=== PATIENT | female | born 1980 | race Caucasian/White ===

== ENCOUNTER 2018-02-27 07:22 | Emergency (ER) | payer SELFPAY ==
[2018-02-27 07:26] VITALS: BP 138/90; PULSE 74; RESP 16; TEMP 37; O2SAT 99
--- NOTE | 2018-02-27 07:31 | W.ED.GENAD ---
Discharge Plan Disposition Patient Disposition: HOME Condition: Stable Discharge Details Chief Complaint: EarProblem Clinical Impression: Acute otitis externa of left ear Primary Care Provider: NONE,NONE ED Provider: Bernard Gimenez Home Meds and New Rx's Prescriptions: New hxbcwirf-gaxilapcj-NQ 3.5-10,000-1 mg/mL-unit/mL-% drops,suspension 4 drp OT Q8H 7 Days Qty: 10 RF: 0 Continue sumatriptan succinate [Imitrex] 50 MG tablet 50 mg PO BID PRN PRN (Reason: Headache) Qty: 6 RF: 0 Discharge Instructions Instructions: Otitis Externa (ED) Discharge Data Discharge Physician: Bernard Gimenez Medical Decision Making patient comes in with left ear pain since last night, denies any swimming or use of q tips. Denies fevers or headaches. HAs pain when pulling on pinna and left external auditory meatus is inflammed and tender on exam, tm appears normal without rupture, normal exam of the right ear. Will start tx for otitis externa and advised f/u with pcp if not improving Differential Diagnosis aom, oe HPI General Mode of arrival: ambulatory. Date/Time Provider Initiated Documentation: 02/27/18 07:28. Limitations to Documentation: no limitations. Information obtained by: patient. History of Present Illness 37 year old F presents to the emergency department with the chief complaint of left ear pain, described as mild, with intensity rated at 3. Quality is described as aching, Patient reports no radiation. Patient started experiencing this day(s) (1) No relieving factors improve symptom(s), No exacerbating factors reported . Related Data Home Medications Medication Instructions Recorded Confirmed sumatriptan succinate [Imitrex] 50 mg PO BID PRN PRN #6 tab 09/05/16 02/27/18 xyqrspxt-ssnqerfws-LR 4 drp OT Q8H 7 Days #10 ml 02/27/18 Previous Rx's Medication Instructions Recorded sumatriptan succinate [Imitrex] 50 mg PO BID PRN PRN #6 tab 09/05/16 ydsvrvtj-idknylocm-RJ 4 drp OT Q8H 7 Days #10 ml 02/27/18 Allergies Allergy/AdvReac Type Severity Reaction Status Date / Time aloe vera Allergy Mild Unverified 02/27/18 07:28 General Stated Complaint: EarProblem MILADYS: 5 Review of Systems Review of Systems All systems reviewed & are unremarkable except as noted in HPI and below Constitutional Denies chills and Denies fever(s) ENT Denies change in voice Cardiovascular Denies dyspnea Respiratory Denies dyspnea Gastrointestinal Denies abdominal pain, Denies nausea and Denies vomiting Genitourinary Denies dysuria Integumentary/Breasts Denies rash Allergic/Immunologic Reports urticaria PFSH Social History Smoking/Tobacco Use Status: Former Tobacco Use Surgical History Hysterectomy, Laproscopic Exam Const General: no acute distress Orientation: alert HENMT Head: normal to inspection Ears: external ears normal, TM's normal bilaterally and other (left external audotry canal swollen and tender on exam) General nose exam: external nose normal Mouth: moist mucous membranes Eyes General: appearance normal, both eyes and all related structures Neck Neck: normal visual inspection Resp Effort & Inspection: normal respiratory effort and able to speak in complete sentences Cardio Rate: regular rate Skin General skin exam: no rashes or lesions noted Neuro General: alert and oriented x3 Extrem General: normal to inspection Psych Mental Status: mental status grossly normal Course Vital Signs Temperature 37 C 02/27/18 07:26 Pulse 74 02/27/18 07:26 Respiratory Rate 16 02/27/18 07:26 Blood Pressure 138/90 02/27/18 07:26 Pulse Oximetry 99 02/27/18 07:26 Temperature 37 C 02/27/18 07:26 Temperature Source Temporal Artery Scan 02/27/18 07:26 Pulse 74 02/27/18 07:26 Respiratory Rate 16 02/27/18 07:26 Blood Pressure 138/90 02/27/18 07:26 Pulse Oximetry 99 02/27/18 07:26 Oxygen Delivery Method Room Air 02/27/18 07:26 Oxygen Flow Rate 0 02/27/18 07:26 Pain Level 7 02/27/18 07:29
--- NOTE | 2018-02-27 07:36 | ED.GENADUL_ITS ---
Discharge Plan Disposition Patient Disposition: HOME Condition: Stable Discharge Details Chief Complaint: EarProblem Clinical Impression: Acute otitis externa of left ear Primary Care Provider: NONE,NONE ED Provider: Bernard Gimenez Home Meds and New Rx's Prescriptions: New tovivwzw-yhbkknbxi-EE 3.5-10,000-1 mg/mL-unit/mL-% drops,suspension 4 drp OT Q8H 7 Days Qty: 10 RF: 0 Continue sumatriptan succinate [Imitrex] 50 MG tablet 50 mg PO BID PRN PRN (Reason: Headache) Qty: 6 RF: 0 Discharge Instructions Instructions: Otitis Externa (ED) Discharge Data Discharge Physician: Bernard Gimenez Medical Decision Making patient comes in with left ear pain since last night, denies any swimming or use of q tips. Denies fevers or headaches. HAs pain when pulling on pinna and left external auditory meatus is inflammed and tender on exam, tm appears normal without rupture, normal exam of the right ear. Will start tx for otitis externa and advised f/u with pcp if not improving Differential Diagnosis aom, oe HPI General Mode of arrival: ambulatory . Date/Time Provider Initiated Documentation: 02/27/18 07:28 . Limitations to Documentation: no limitations . Information obtained by: patient . History of Present Illness 37 year old F presents to the emergency department with the chief complaint of left ear pain, described as mild, with intensity rated at 3. Quality is described as aching, Patient reports no radiation. Patient started experiencing this day(s) (1) No relieving factors improve symptom(s), No exacerbating factors reported . Related Data Home Medications Medication Instructions Recorded Confirmed sumatriptan succinate [Imitrex] 50 mg PO BID PRN PRN #6 tab 09/05/16 02/27/18 epoebpyt-lpnixkckd-UE 4 drp OT Q8H 7 Days #10 ml 02/27/18 Previous Rx's Medication Instructions Recorded sumatriptan succinate [Imitrex] 50 mg PO BID PRN PRN #6 tab 09/05/16 zvjfdcwp-zoiqblgem-ZG 4 drp OT Q8H 7 Days #10 ml 02/27/18 Allergies Allergy/AdvReac Type Severity Reaction Status Date / Time aloe vera Allergy Mild Unverified 02/27/18 07:28 General Stated Complaint: EarProblem MILADYS: 5 Review of Systems Review of Systems All systems reviewed & are unremarkable except as noted in HPI and below Constitutional Denies chills and Denies fever(s) ENT Denies change in voice Cardiovascular Denies dyspnea Respiratory Denies dyspnea Gastrointestinal Denies abdominal pain, Denies nausea and Denies vomiting Genitourinary Denies dysuria Integumentary/Breasts Denies rash Allergic/Immunologic Reports urticaria PFSH Social History Smoking/Tobacco Use Status: Former Tobacco Use Surgical History Hysterectomy, Laproscopic Exam Const General: no acute distress Orientation: alert HENMT Head: normal to inspection Ears: external ears normal, TM's normal bilaterally and other (left external audotry canal swollen and tender on exam) General nose exam: external nose normal Mouth: moist mucous membranes Eyes General: appearance normal, both eyes and all related structures Neck Neck: normal visual inspection Resp Effort & Inspection: normal respiratory effort and able to speak in complete sentences Cardio Rate: regular rate Skin General skin exam: no rashes or lesions noted Neuro General: alert and oriented x3 Extrem General: normal to inspection Psych Mental Status: mental status grossly normal Course Vital Signs Temperature 37 C 02/27/18 07:26 Pulse 74 02/27/18 07:26 Respiratory Rate 16 02/27/18 07:26 Blood Pressure 138/90 02/27/18 07:26 Pulse Oximetry 99 02/27/18 07:26 Temperature 37 C 02/27/18 07:26 Temperature Source Temporal Artery Scan 02/27/18 07:26 Pulse 74 02/27/18 07:26 Respiratory Rate 16 02/27/18 07:26 Blood Pressure 138/90 02/27/18 07:26 Pulse Oximetry 99 02/27/18 07:26 Oxygen Delivery Method Room Air 02/27/18 07:26 Oxygen Flow Rate 0 02/27/18 07:26 Pain Level 7 02/27/18 07:29
[2018-02-27 07:41] VITALS: BP 138/90; PULSE 74; RESP 16; TEMP 37; O2SAT 99
== END 2018-02-27 07:47 | disposition home or self-care (01) ==
PROVIDERS: Emergency Provider Emergency Medicine
DX: H60.502 Unspecified acute noninfective otitis externa, left ear (principal)
CPT/HCPCS: 99283

== ENCOUNTER 2018-10-14 08:33 | Emergency (ER) | payer OTHER, SELFPAY ==
[2018-10-14 08:42] VITALS: BP 134/98; PULSE 72; RESP 20; TEMP 36.7; O2SAT 99
--- NOTE | 2018-10-14 09:03 | W.ED.GENAD ---
Discharge Plan Disposition Patient Disposition: HOME Condition: Stable Discharge Details Chief Complaint: EarProblem Clinical Impression: Otitis externa of left ear Primary Care Provider: None,None ED Provider: Bernard Gimenez Home Meds and New Rx's Prescriptions: New lshrgzhv-olkhgvvxd-DC 3.5-10,000-1 mg/mL-unit/mL-% drops,suspension 4 drp OT Q8H 7 Days Qty: 10 RF: 0 Continued sumatriptan succinate [Imitrex] 50 MG tablet 50 mg PO BID PRN PRN (Reason: Headache) Qty: 6 RF: 0 Medical Decision Making 38 yo female comes in with left era pain for 3 days without fevers. She denies swimming or known trauma, does work in loud environment and forgot to wear ear prtection recently for brief period. Both tm's, normal on exam and external mastoids also normal. Right externaul auditory canal appears normal, left is swollen and tender on exam. Will tx as otitis externa, advised f/u with pcp and return precautions given Differential Diagnosis otitis externa, aom HPI General Mode of arrival: ambulatory. Date/Time Provider Initiated Documentation: 10/14/18 08:57. Limitations to Documentation: no limitations. Information obtained by: patient. History of Present Illness 38 year old F presents to the emergency department with the chief complaint of right ear pain, described as moderate, Quality is described as aching, Patient started experiencing this day(s) (3) and it has been constant. No relieving factors improve symptom(s), No exacerbating factors reported . Patient notes no other symptoms.. Patient did receive the following treatments prior to arrival, none Related Data Home Medications Medication Instructions Recorded Confirmed sumatriptan succinate [Imitrex] 50 mg PO BID PRN PRN #6 tab 09/05/16 10/14/18 [id number]-jaczimwgm-UB 4 drp OT Q8H 7 Days #10 ml 10/14/18 Previous Rx's Medication Instructions Recorded sumatriptan succinate [Imitrex] 50 mg PO BID PRN PRN #6 tab 09/05/16 ykzpwkww-xbyewqkqg-UP 4 drp OT Q8H 7 Days #10 ml 10/14/18 Allergies Allergy/AdvReac Type Severity Reaction Status Date / Time aloe vera Allergy Mild Unverified 10/14/18 08:44 General Stated Complaint: EarProblem MILADYS: 4 Review of Systems Review of Systems All systems reviewed & are unremarkable except as noted in HPI and below Constitutional Denies chills and Denies fever(s) ENT Denies change in voice Cardiovascular Denies chest pain and Denies dyspnea Respiratory Denies cough and Denies dyspnea Gastrointestinal Denies vomiting Integumentary/Breasts Denies rash PFSH Surgical History Hysterectomy, Laproscopic Social History Smoking/Tobacco Use Status: Former Tobacco Use Alcohol Intake: never Drug use: Never Do you feel safe at home: Yes Do you feel safe in your relationship?: Yes Exam Const General: no acute distress Orientation: alert HENMT Head: normal to inspection Ears: external ears normal General nose exam: external nose normal Mouth: moist mucous membranes Eyes General: appearance normal, both eyes and all related structures Neck Neck: normal visual inspection Resp Effort & Inspection: normal respiratory effort and able to speak in complete sentences Cardio Rate: regular rate Skin General skin exam: no rashes or lesions noted Neuro General: alert and oriented x3 Extrem General: normal to inspection Psych Mental Status: mental status grossly normal Course Vital Signs Temperature 36.7 C 10/14/18 08:42 Pulse 72 10/14/18 08:42 Respiratory Rate 20 10/14/18 08:42 Blood Pressure 134/98 H 10/14/18 08:42 Pulse Oximetry 99 10/14/18 08:42 Temperature 36.7 C 10/14/18 08:42 Temperature Source Temporal Artery Scan 10/14/18 08:42 Pulse 72 10/14/18 08:42 Respiratory Rate 20 10/14/18 08:42 Respiratory Effort Non-Labored 10/14/18 08:42 Blood Pressure 134/98 H 10/14/18 08:42 Pulse Oximetry 99 10/14/18 08:42 Oxygen Delivery Method Room Air 10/14/18 08:42 Oxygen Flow Rate 0 10/14/18 08:42 Pain Level 6 10/14/18 08:44
--- NOTE | 2018-10-14 09:08 | ED.GENADUL_ITS ---
Discharge Plan Disposition Patient Disposition: HOME Condition: Stable Discharge Details Chief Complaint: EarProblem Clinical Impression: Otitis externa of left ear Primary Care Provider: None,None ED Provider: Bernard Gimenez Home Meds and New Rx's Prescriptions: New omowgdbw-dazmfjiei-QF 3.5-10,000-1 mg/mL-unit/mL-% drops,suspension 4 drp OT Q8H 7 Days Qty: 10 RF: 0 Continued sumatriptan succinate [Imitrex] 50 MG tablet 50 mg PO BID PRN PRN (Reason: Headache) Qty: 6 RF: 0 Medical Decision Making 38 yo female comes in with left era pain for 3 days without fevers. She denies swimming or known trauma, does work in loud environment and forgot to wear ear prtection recently for brief period. Both tm's, normal on exam and external mastoids also normal. Right externaul auditory canal appears normal, left is swollen and tender on exam. Will tx as otitis externa, advised f/u with pcp and return precautions given Differential Diagnosis otitis externa, aom HPI General Mode of arrival: ambulatory . Date/Time Provider Initiated Documentation: 10/14/18 08:57 . Limitations to Documentation: no limitations . Information obtained by: patient . History of Present Illness 38 year old F presents to the emergency department with the chief complaint of right ear pain, described as moderate, Quality is described as aching, Patient started experiencing this day(s) (3) and it has been constant. No relieving factors improve symptom(s), No exacerbating factors reported . Patient notes no other symptoms.. Patient did receive the following treatments prior to arrival, none Related Data Home Medications Medication Instructions Recorded Confirmed sumatriptan succinate [Imitrex] 50 mg PO BID PRN PRN #6 tab 09/05/16 10/14/18 ytziqkgq-aqoydqjqe-EK 4 drp OT Q8H 7 Days #10 ml 10/14/18 Previous Rx's Medication Instructions Recorded sumatriptan succinate [Imitrex] 50 mg PO BID PRN PRN #6 tab 09/05/16 jljygnae-qdjwimkwa-LC 4 drp OT Q8H 7 Days #10 ml 10/14/18 Allergies Allergy/AdvReac Type Severity Reaction Status Date / Time aloe vera Allergy Mild Unverified 10/14/18 08:44 General Stated Complaint: EarProblem MILADYS: 4 Review of Systems Review of Systems All systems reviewed & are unremarkable except as noted in HPI and below Constitutional Denies chills and Denies fever(s) ENT Denies change in voice Cardiovascular Denies chest pain and Denies dyspnea Respiratory Denies cough and Denies dyspnea Gastrointestinal Denies vomiting Integumentary/Breasts Denies rash PFSH Surgical History Hysterectomy, Laproscopic Social History Smoking/Tobacco Use Status: Former Tobacco Use Alcohol Intake: never Drug use: Never Do you feel safe at home: Yes Do you feel safe in your relationship?: Yes Exam Const General: no acute distress Orientation: alert HENMT Head: normal to inspection Ears: external ears normal General nose exam: external nose normal Mouth: moist mucous membranes Eyes General: appearance normal, both eyes and all related structures Neck Neck: normal visual inspection Resp Effort & Inspection: normal respiratory effort and able to speak in complete sentences Cardio Rate: regular rate Skin General skin exam: no rashes or lesions noted Neuro General: alert and oriented x3 Extrem General: normal to inspection Psych Mental Status: mental status grossly normal Course Vital Signs Temperature 36.7 C 10/14/18 08:42 Pulse 72 10/14/18 08:42 Respiratory Rate 20 10/14/18 08:42 Blood Pressure 134/98 H 10/14/18 08:42 Pulse Oximetry 99 10/14/18 08:42 Temperature 36.7 C 10/14/18 08:42 Temperature Source Temporal Artery Scan 10/14/18 08:42 Pulse 72 10/14/18 08:42 Respiratory Rate 20 10/14/18 08:42 Respiratory Effort Non-Labored 10/14/18 08:42 Blood Pressure 134/98 H 10/14/18 08:42 Pulse Oximetry 99 10/14/18 08:42 Oxygen Delivery Method Room Air 10/14/18 08:42 Oxygen Flow Rate 0 10/14/18 08:42 Pain Level 6 10/14/18 08:44
== END 2018-10-14 09:18 | disposition home or self-care (01) ==
PROVIDERS: Emergency Provider Emergency Medicine
DX: H60.92 Unspecified otitis externa, left ear (principal); Z87.891 Personal history of nicotine dependence
CPT/HCPCS: 99283

== ENCOUNTER 2019-01-22 09:27 | Emergency (ER) | payer SELFPAY ==
[2019-01-22 09:30] VITALS: BP 121/81; PULSE 89; RESP 18; TEMP 36.4; O2SAT 100
--- NOTE | 2019-01-22 09:35 | ED.GENADUL_ITS ---
Discharge Plan Disposition Patient Disposition: HOME Condition: Good Discharge Details Chief Complaint: Orthopedic Clinical Impression: Left shoulder strain, Muscle spasm Primary Care Provider: None,None ED Provider: Hetal Echols Home Meds and New Rx's Prescriptions: New diazepam [Valium] 5 mg tablet 5 mg PO TID PRN (Reason: muscle spasm) Qty: 7 RF: 0 lidocaine [Lidoderm] 5 % adhesive patch,medicated 1 patch TP DAILY PRN (Reason: pain) Qty: 15 RF: 0 Continued sumatriptan succinate [Imitrex] 50 MG tablet 50 mg PO BID PRN PRN (Reason: Headache) Qty: 6 RF: 0 naproxen sodium [Aleve] 220 mg Tablet 440 mg PO Q12H PRNRF: 0 Discharge Instructions Instructions: Muscle Spasm (ED) Additional Instructions: Encourage hydration. May use Tylenol and/or ibuprofen as needed for discomfort. You may use the Lidoderm patches as prescribed to help with pain. Augment this with the Valium if you continue to have muscle spasm along the trapezius. Do not drive while taking the Valium. Take this was prescribed. I am unable to examine the deeper structures such as her rotator cuff at this time secondary to pain. Pain persist with the Please follow-up with your primary care for reevaluation. If you develop new or worsening symptoms please Stand Alone Forms: Work Release Discharge Data Discharge Date/Time-TO BE ENTERED AT DEPARTURE: 01/22/19 10:55 Medical Decision Making Patient is a 38-year-old ambidextrous female presents today with chief complaint left shoulder pain. She reports that yesterday, while at work, she was lifting 100 pound mold with a coworker. She reports the coworker lost her claims support specialist and she quickly adjusted to try and catch the possible equipment. No sudden onset of left shoulder pain and since then has had progressive worsening left shoulder pain. She indicates the superior and lateral aspect of shoulder is area of discomfort. Reports that she did feel pop. Denies any altered sensation. No other injury the time of the accident. Patient is status post hysterectomy. On exam, patient is resting comfortably. She has pain to palpation over the lateral aspect, particularly at the subacromial space. Also endorses discomfort along the trapezius with palpation. She does feel tight and has notable spasm in this area. She take anti-inflammatory prior to arrival. Range of motion is limited, she is able to forward elevate to 190 degrees. External rotation is lacking approximately 15 degrees contralateral side. Internal rotation is full. No palpable deformity, no evidence of ecchymosis in the skin. Plan for imaging, augmentation of the NSAIDs with Tylenol, Lidoderm patch and muscle relaxer. Patient is feeling much improved. X-ray reviewed by radiologist as well as myself and noted to be without any acute abnormality. Discussed these findings with the patient. Advised strain. We did discuss that given the discomfort she is experiencing at this time, I am unable to fully evaluate the rotator cuff. However, advised to need time to allow her acute injury to heal. Encourage gentle range of motion, she is given his passive exercises to keep her from developing adhesive capsulitis. Advise follow-up with primary care in 1 to 2 weeks for reevaluation. She is given strict return precautions. She will continue with Tylenol and ibuprofen as needed for discomfort. She was offered sling which she declined. All her questions and concerns were addressed and she is in agreement this plan HPI General Mode of arrival: ambulatory . Date/Time Provider Initiated Documentation: 01/22/19 09:34 . Limitations to Documentation: no limitations . Information obtained by: patient and RN notes reviewed . History of Present Illness 38 year old F presents to the emergency department with the chief complaint of left shoulder pain, described as moderate, with intensity rated at 7. Quality is described as burning and aching, and is localized to the left and upper extremity. Patient reports no radiation. Patient started experiencing this day(s) (1) and it has been constant. Immobilization improves symptom(s), Movement worsens symptoms . Patient notes no other symptoms.. Patient did receive the following treatments prior to arrival, NSAID Related Data Home Medications Medication Instructions Recorded Confirmed sumatriptan succinate [Imitrex] 50 mg PO BID PRN PRN #6 tab 09/05/16 01/22/19 diazepam [Valium] 5 mg PO TID PRN #7 tab 01/22/19 lidocaine [Lidoderm] 1 patch TP DAILY PRN #15 each 01/22/19 naproxen sodium [Aleve] 440 mg PO Q12H PRN 01/22/19 01/22/19 Previous Rx's Medication Instructions Recorded sumatriptan succinate [Imitrex] 50 mg PO BID PRN PRN #6 tab 04/13/17 diazepam [Valium] 5 mg PO TID PRN #7 tab 01/22/19 lidocaine [Lidoderm] 1 patch TP DAILY PRN #15 each 01/22/19 Allergies Allergy/AdvReac Type Severity Reaction Status Date / Time aloe vera Allergy Mild Unverified 01/22/19 09:40 General Stated Complaint: Orthopedic MILADYS: 4 Review of Systems Constitutional Reports as per HPI, Denies chills, Denies fever(s), Denies headache(s) and Denies weakness ENT Denies headache(s) Cardiovascular Reports as per HPI Respiratory Reports as per HPI and Denies cough Musculoskeletal Reports as per HPI and Denies tingling Integumentary/Breasts Reports as per HPI, Denies rash and Denies wounds Neurologic Reports as per HPI, Denies headache(s), Denies tingling, Denies paresthesias and Denies weakness PFSH Surgical History Hysterectomy, Laproscopic Social History Smoking/Tobacco Use Status: Former Tobacco Use Alcohol Intake: never Drug use: Never Do you feel safe at home: Yes Do you feel safe in your relationship?: Yes Exam Const General: cooperative, healthy appearing, comfortable, no acute distress, well developed and well groomed Nutritional Appearance: average body habitus and well nourished Orientation: alert and awake Resp Effort & Inspection: normal respiratory effort, able to speak in complete sentences and no respiratory distress Cardio Rate: regular rate Rhythm: regular rhythm Skin General skin exam: no rashes or lesions noted Lesions: no lesions Rashes: no rashes Trauma: no lacerations or abrasions Neuro General: alert and awake Cognition: normal cognition Speech: speech normal Gait: normal gait Motor: muscle tone normal throughout Sensory Exam: no sensory deficits noted Extrem Left upper extremity: normal to inspection, normal capillary refill, no joint enlargement, shoulder/upper arm Details: inspection abnormal, tenderness (superior lateral) and axillary nerve sensory function normal; no swelling, ROM limited, no abrasions, no lacerations, no crepitus, no deformity and no unsual warmth, elbow/forearm Details: normal to inspection, normal ROM and distal pulses intact; no tenderness, no swelling and no unusual warmth and wrist Details: normal to inspection, normal ROM and normal vascular exam; no te nderness and no swelling; ROM limited (limited FE to 90) Psych Appearance: grossly normal and well kempt Mental Status: mental status grossly normal Speech and Movement: speech and movement normal Course Vital Signs Temperature 36.4 C L 01/22/19 09:30 Pulse 89 01/22/19 09:30 Respiratory Rate 18 01/22/19 09:30 Blood Pressure 121/81 01/22/19 09:30 Pulse Oximetry 100 01/22/19 09:30 Temperature 36.4 C L 01/22/19 09:30 Temperature Source Temporal Artery Scan 01/22/19 09:30 Pulse 89 01/22/19 09:30 Respiratory Rate 18 01/22/19 09:30 Respiratory Effort Short of Breath 01/22/19 09:34 Blood Pressure 121/81 01/22/19 09:30 Blood Pressure Position Sitting 01/22/19 09:30 Pulse Oximetry 100 01/22/19 09:30 Oxygen Delivery Method Room Air 01/22/19 09:30 Oxygen Flow Rate 0 01/22/19 09:30 Pain Level 7 01/22/19 09:30
--- NOTE | 2019-01-22 09:53 | DI.RAD_ITS ---
SYMPTOM/DIAGNOSIS: PAIN LATERALLY, TRAUMA FROM LIFTING YESTERDAY LEFT SHOULDER: No fracture or dislocation is seen. IMPRESSION: Negative left shoulder.
[2019-01-22] MEDS: diazePAM 5 MG TAB PO (10:14)
[2019-01-22] MEDS: Acetaminophen 500 MG TAB 1000 MG PO (10:14)
[2019-01-22] MEDS: Lidocaine 5% Patch 1 PATCH TP (10:35)
== END 2019-01-22 10:55 | disposition home or self-care (01) ==
PROVIDERS: Emergency Provider Physician Assistant
DX: S46.912A Strain of unspecified muscle, fascia and tendon at shoulder and upper arm level, left arm, initial encounter (principal); M62.838 Other muscle spasm; X50.0XXA Overexertion from strenuous movement or load, initial encounter; Y99.0 Civilian activity done for income or pay
CPT/HCPCS: 99283; 73030

== ENCOUNTER 2019-03-08 10:20 | Emergency (ER) | payer OTHER, SELFPAY ==
[2019-03-08 10:22] VITALS: BP 115/79; PULSE 80; RESP 18; TEMP 36.6; O2SAT 99
--- NOTE | 2019-03-08 10:36 | ED.GENADUL_ITS ---
Discharge Plan Disposition Patient Disposition: HOME Discharge Details Chief Complaint: EarProblem Clinical Impression: Otitis externa of left ear Primary Care Provider: Elizabeth Hauser ED Provider: Julio César Agudelo Home Meds and New Rx's Prescriptions: New Ciprodex 0.3-0.1 % drops,suspension 4 drp OT BID 7 Days Qty: 7.5 RF: 0 No Action sumatriptan succinate [Imitrex] 50 MG tablet 50 mg PO BID PRN PRN (Reason: Headache) Qty: 6 RF: 0 naproxen sodium [Aleve] 220 mg Tablet 440 mg PO Q12H PRNRF: 0 Discharge Instructions Instructions: Otitis Externa (ED) Additional Instructions: Your exam is concerning for an infection involving the ear canal. Apply drops as prescribed. He can also try several drops of all of oil at home for discomfort. Take Tylenol Motrin as tolerated. Return should symptoms worsen. Referrals: Elizabeth Hauser, [employer] [Primary Care Provider] - 1 week Medical Decision Making This is a nontoxic-appearing 38-year-old female presenting to the emergency department with symptoms significant for left otitis externa. Canal erythema and edema noted. No significant discharge at this time. TMs clear bilaterally. Will provide Ciprodex drops for infection. Return precautions provided HPI General Date/Time Provider Initiated Documentation: 03/08/19 10:21 . HPI Narrative: Patient is a 38-year-old female who presents to the emergency department with left ear pain. Patient states symptoms been going on for the last 24 hours. She denies any trauma. No fevers. No sore throat. She states that she did take a shower prior to the onset of her symptoms and did not dry her hair. Related Data Home Medications Medication Instructions Recorded Confirmed sumatriptan succinate [Imitrex] 50 mg PO BID PRN PRN #6 tab 09/05/16 03/08/19 naproxen sodium [Aleve] 440 mg PO Q12H PRN 01/22/19 03/08/19 ciprofloxacin-dexamethasone 4 drp OT BID 7 Days #7.5 ml 03/08/19 [Ciprodex] Previous Rx's Medication Instructions Recorded sumatriptan succinate [Imitrex] 50 mg PO BID PRN PRN #6 tab 09/05/16 ciprofloxacin-dexamethasone 4 drp OT BID 7 Days #7.5 ml 03/08/19 [Ciprodex] Allergies Allergy/AdvReac Type Severity Reaction Status Date / Time aloe vera Allergy Mild Unverified 03/08/19 10:27 General Stated Complaint: EarProblem MILADYS: 4 Review of Systems Constitutional Constitutional: Denies chills, Denies fever(s), Denies headache(s) and Denies lethargy Eyes Eyes: Denies eye discharge ENT Ears, Nose, Mouth, and Throat: Denies dental pain, Denies dysphagia, Reports otalgia, Denies facial pain, Denies headache(s), Denies hearing loss, Denies hoarseness, Denies mouth lesions, Denies nasal congestion, Denies nasal discharge, Denies neck pain and Denies sore throat Cardiovascular Cardiovascular: Denies chest pain Gastrointestinal Gastrointestinal: Denies dysphagia Musculoskeletal Musculoskeletal: Denies neck pain Integumentary/Breasts Skin/Breast: Denies rash Neurologic Neurologic: Denies headache(s) PFSH Surgical History Hysterectomy, Laproscopic Social History Smoking/Tobacco Use Status: Former Tobacco Use Alcohol Intake: never Drug use: Never Do you feel safe at home: Yes Do you feel safe in your relationship?: Yes Exam Const General: cooperative, healthy appearing, comfortable, no acute distress and well developed HENWY Head: normal to inspection Ears: hearing grossly normal bilaterally, TM's normal bilaterally and EAC abnormal erythema on the left, edema on the left and EAC tenderness on the left Face and sinus: normal facial exam Mouth: oral mucosae normal Throat: posterior oropharynx normal Eyes General: appearance normal, both eyes and all related structures Neck Neck: normal visual inspection Lymphatic: lymphadenopathy (Anterior cervical) Chest Chest: normal inspection of the chest Resp Effort & Inspection: normal respiratory effort and able to speak in complete sentences Auscultation: clear to auscultation bilaterally Skin General skin exam: no rashes or lesions noted Course Vital Signs Vital signs: Vital Signs Temperature 36.6 C 03/08/19 10:22 Pulse 80 03/08/19 10:22 Respiratory Rate 18 03/08/19 10:22 Blood Pressure 115/79 03/08/19 10:22 Pulse Oximetry 99 03/08/19 10:22 Temperature 36.6 C 03/08/19 10:22 Temperature Source Temporal Artery Scan 03/08/19 10:22 Pulse 80 03/08/19 10:22 Respiratory Rate 18 03/08/19 10:22 Respiratory Effort Non-Labored 03/08/19 10:26 Blood Pressure 115/79 03/08/19 10:22 Blood Pressure Position Sitting 03/08/19 10:22 Pulse Oximetry 99 03/08/19 10:22 Oxygen Delivery Method Room Air 03/08/19 10:22 Oxygen Flow Rate 0 03/08/19 10:22 Pain Level 7 03/08/19 10:26
== END 2019-03-08 10:56 | disposition home or self-care (01) ==
LOC: ER 10:54
PROVIDERS: Emergency Provider Physician Assistant; PCP Nurse Practitioner
DX: H66.92 Otitis media, unspecified, left ear (principal)
CPT/HCPCS: 99283

== ENCOUNTER 2019-03-26 07:00 | Outpatient (CLI) | payer OTHER, SELFPAY ==
[2019-03-26 11:03] LABS: Calculated LDL 137 mg/dL; Cholesterol 204 mg/dL (50-200); HDL Cholesterol 51 mg/dL (40-60); Triglyceride 80 mg/dL (30-150)
[2019-03-26 11:04] LABS: Hemoglobin A1C 5.7 % (4.5-6.2)
== END 2019-03-26 07:20 ==
PROVIDERS: PCP Nurse Practitioner; Visit Provider Nurse Practitioner
DX: Z13.6 Encounter for screening for cardiovascular disorders (principal); Z13.1 Encounter for screening for diabetes mellitus
CPT/HCPCS: 36415; 80061; 83036

== ENCOUNTER 2019-04-28 01:00 | Outpatient (CLI) | payer OTHER, SELFPAY ==
--- NOTE | 2019-04-28 16:05 | DI.MAMMO_ITS ---
EXAM: MG MAMMO SCREENING CLINICAL HISTORY: screening, Z12.39. TECHNIQUE: Bilateral full field digital CC and MLO mammographic images were obtained with 3D tomosyn thesis and utilizing computer aided detection (CAD). COMPARISON: baseline FINDINGS: Masses/Architectural Distortion: None seen. Microcalcifications: No suspicious pleomorphic-type are seen. Skin Thickening/Nipple Retraction: None. IMPRESSION: 1. No significant interval change with no specific features of malignancy noted. 2. Unless there is more urgent need, screening mammography is recommended, as per [employer] guidelines. BI-RADS Cat 1 - Negative Breast Density - Category C - Heterogeneously dense A negative radiographic report should not delay biopsy if a dominant or clinically suspicious mass is present. Up to ten percent of cancers are not identified on mammography. A negative report may reinforce clinical impression. Adenosis and dense breasts may obscure an underlying neoplasm. False positive reports average 6 to 10%. Patient will receive a letter notifying them of these results.
== END 2019-04-28 01:20 ==
PROVIDERS: PCP Nurse Practitioner; Visit Provider Nurse Practitioner
DX: Z12.31 Encounter for screening mammogram for malignant neoplasm of breast (principal)
CPT/HCPCS: 77063; 77067

== ENCOUNTER 2019-06-02 03:45 | Emergency (ER) | payer OTHER, SELFPAY ==
[2019-06-02 03:49] VITALS: BP 133/81; PULSE 90; RESP 16; TEMP 36.6; O2SAT 99
--- NOTE | 2019-06-02 03:53 | W.ED.GENAD ---
Discharge Plan Disposition Patient Disposition: HOME Condition: Good Discharge Details Chief Complaint: Headache Clinical Impression: Migraine Primary Care Provider: Elizabeth Hauser ED Provider: Melvin Henley Home Meds and New Rx's Prescriptions: No Action sumatriptan succinate [Imitrex] 50 MG tablet 50 mg PO BID PRN PRN (Reason: Headache) Qty: 6 RF: 0 Discharge Instructions Instructions: Migraine Headache (ED) Additional Instructions: At this time your symptoms are consistent with migraine headache. Please contact your primary care provider in the morning to finalize your refill on your medication. Please continue to drink plenty fluids at home, avoid preserved movements. If you notice any worsening of your symptoms, or any new symptoms such as vomiting, diarrhea, fever, chills, shortness of breath, chest pain, numbness, weakness, or fainting , please return immediately to the emergency department for reevaluation. Please follow up with your primary care provider as soon as possible for reassessment and reevaluation. As always, it was a pleasure participating in your medical care today. Referrals: Elizabeth Hauser, [employer] [Primary Care Provider] - Medical Decision Making Is a pleasant 39-year-old female with a past medical history of chronic migraines who does have Imitrex at home who presents today for evaluation of headache. She recently ran out of Imitrex and is scheduled to get a refill by her PCP. Patient states that 3 to 4 hours ago she had an onset of her headache, it was gradual in nature. Not thunderclap. No associated neck pain fevers or chills. No clinical evidence of meningitis. Patient states that her symptoms are identical to previous migraines. She would like to hold off on any additional imaging. Neurologic exam is unremarkable. Signs and symptoms are clinically consistent with chronic migraine and inconsistent with meningitis, or acute life-threatening intracranial process. Will give migraine cocktail, rehydrate and reassess. 4:40 AM The patient has near complete resolution of her symptoms and is asking to go home. She feels much better. Repeat neurologic exam is normal and unremarkable. No focal neurologic deficits. Signs and symptoms clinically consistent with chronic migraine. Discussed red flags for which to return. I have extensively reviewed the treatment plan and discharge instructions with the patient. I have addressed all patient concerns at this time. The patient was made aware of what symptoms to monitor for that would warrant a return to the emergency department. Discussed the plan with the patient, they demonstrate verbal understanding and agreement with our assessment and plan at this time. HPI General Date/Time Provider Initiated Documentation: 06/02/19 03:47. HPI Narrative: This is a 39-year-old female with a past medical history of migraine headaches who presents today for evaluation of migraine headache. Patient states that she recently ran out of her Imitrex, and is supposed to get it refilled by her primary care provider. Her headache started at midnight which is about 4 hours ago. It is in the left cheondoism. She has associated aversion to light and loud noise. She denies any significant neck pain, no fever, no chills or trauma. She has had a CT scan in the past in conjunction with her headaches which was unremarkable. She states that this is identical to previous migraines. She denies any vomiting, diarrhea, numbness tingling or weakness. The patient denies any headache red flags of worst headache of life, thunderclap headache, neck pain, fever, chills, concerning family history of polycystic kidney disease, Marfan syndrome, Phil-Danlos syndrome, abdominal aortic aneurysm, aortic dissection, or intracranial aneurysm. Related Data Home Medications Medication Instructions Recorded Confirmed sumatriptan succinate [Imitrex] 50 mg PO BID PRN PRN #6 tab 09/05/16 06/02/19 Previous Rx's Medication Instructions Recorded sumatriptan succinate [Imitrex] 50 mg PO BID PRN PRN #6 tab 09/05/16 Allergies Allergy/AdvReac Type Severity Reaction Status Date / Time aloe vera Allergy Mild Unverified 06/02/19 03:54 General MILADYS: 4 Review of Systems All systems reviewed & are unremarkable except as noted in HPI and below PFSH Social History Smoking/Tobacco Use Status: Former Tobacco Use Tobacco: How many years used: 10 Alcohol Intake: current Alcohol Intake frequency: holidays/special occasions only Drug use: Never Do you feel safe at home: Yes Do you feel safe in your relationship?: Yes Exam Narrative Exam Narrative: 1.Const: Well-nourished, Well-developed, appearing stated age 2.Eyes: PERRL, no conjunctival injection, and symmetrical lids. 3.ENT: Atraumatic external nose and ears. Moist MM. Neck: Symmetric, trachea midline, No thyromegaly. Patient demonstrates good movement of cervical neck. There is no nuchal rigidity, no nuchal tenderness. Patient is able to flex the neck without any difficulty or significant pain. Negative Kernig's and Brudzinski sign. 4.CVS: +S1/S2, No murmurs or gallops. Peripheral pulses 2+ and equal in all extremities. Brisk capillary refill in all extremities. 5.RESP: Unlabored respiratory effort. Clear to auscultation bilaterally. No wheezes rales or rhonchi 6.GI: Soft, Nontender/Nondistended, No hepatosplenomegaly. No guarding or rebound. 7.MSK: Normocephalic/Atraumatic, Extremities w/o deformity or ttp No cyanosis or clubbing, Normal movement of all extremities 8.Skin: Warm, Dry. No rashes or lesions. 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 Sensation grossly intact, no focal neurologic deficits. All 6 cardinal planes of vision are fully intact. No evidence of rotatory or vertical nystagmus. The patient demonstrated a normal wytetr-vlbx-oiyimk, good dexterity. There was no evidence of dysdiadochokinesia. Patient was able to ambulate without difficulty. There was no wide-based gait. Romberg testing was normal. Qkjv-eq-zzfn testing was normal. Sensation was intact bilaterally as well as muscle strength bilaterally for all extremities. Patient was able to verbalize butter cup with no slurring, or miss pronunciation. Cerebellar function testing is normal. The patient demonstrates a normal hints exam with no findings concerning for a central event. No vertical nystagmus. The head impulse test is negative for any significant central abnormality. Normal test of skew. No suggestion of a central cerebellar event. 10.Psych: (AAO) x3. Appropriate mood and affect
[2019-06-02] MEDS: Normal Saline 1,000 ML 1000 ML IV (03:59)
[2019-06-02] MEDS: Acetaminophen 500 MG TAB 1000 MG PO (04:00)
[2019-06-02] MEDS: diphenhydrAMINE 50 MG/ML VIAL 25 MG IVP (04:01)
[2019-06-02] MEDS: Ketorolac 30 MG/ML VIAL IVP (04:03)
[2019-06-02] MEDS: methylPREDNISolone SUCC 125 MG VIAL IVP (04:04)
[2019-06-02] MEDS: Prochlorperazine 10 MG/2 ML VIAL IVP (04:06)
[2019-06-02 04:43] VITALS: BP 119/82; PULSE 69; RESP 18; O2SAT 100
== END 2019-06-02 04:45 | disposition home or self-care (01) ==
PROVIDERS: Emergency Provider Student in an Organized Health Care Education/Training Program; PCP Nurse Practitioner
DX: G43.909 Migraine, unspecified, not intractable, without status migrainosus (principal)
CPT/HCPCS: 96361; 96374; 96375; 99284; 99283; J0780; J1200; J1885; J2930

== ENCOUNTER 2019-06-21 01:45 | Outpatient (CLI) | payer OTHER, SELFPAY ==
[2019-06-21] MEDS: Omnipaque 350 MG/ML 100 ML BTL IJ (10:10)
--- NOTE | 2019-06-21 10:12 | DI.CT_ITS ---
EXAM: CT NECK W CLINICAL HISTORY: ASYMMETRIC TONSILS, NECK PAIN, OROPHARYNGEAL DYSPHAGIA, TONSILLAR CALCULUS, J35.8, M54.2, R13.12 TECHNIQUE: Post IV contrast. COMPARISON: No exams were available for comparison FINDINGS: Scarring and emphysematous changes are seen at the lung apices. The parotid, submandibular and thyr oid glands are unremarkable. The adenoids are not enlarged. There are a few small calcifications wi thin the left tonsil. There is no evidence of focal tonsillar mass or abscess. There is no evidence of inflammation. The visualized portions of the orbits and sinuses are unremarkable. There are no a bnormal enhancing lesions. The epiglottis is unremarkable. IMPRESSION: A few calcifications are seen within the left tonsil which is otherwise unremarkable.
== END 2019-06-21 02:05 ==
PROVIDERS: PCP Nurse Practitioner; Visit Provider Otolaryngology Otolaryngology/Facial Plastic Surgery
DX: M54.2 Cervicalgia (principal); R13.12 Dysphagia, oropharyngeal phase; J35.8 Other chronic diseases of tonsils and adenoids
CPT/HCPCS: 70491; J3490

== ENCOUNTER 2019-07-05 06:56 | Day surgery (SDC) | payer OTHER, SELFPAY ==
[2019-07-05] VITALS (7 sets, daily range): BP systolic 98–117; BP diastolic 70–84; PULSE 51–63; RESP 10–17; TEMP 36.3–37.1; O2SAT 99–100
[2019-07-05] MEDS: Lactated Ringers 1,000 ML 80 ML IV (07:46)
--- NOTE | 2019-07-05 08:00 | W.PM.DSUDISC ---
Discharge Plan Disposition Patient Disposition: HOME Condition: Good Discharge Details Reason For Visit: OR Attending Provider: Simba Villa Primary Care Provider: Elizabeth Hauser Home Meds and New Rx's Prescriptions: No Action idgfhusicoxo-Oe-dbzz-minerals 18-0.4 mg tablet 1 tab PO DAILY RF: 0 sumatriptan succinate [Imitrex] 50 mg tablet 50 mg PO BID PRN Qty: 6 RF: 0 Discharge Instructions Additional Instructions: see sheet Remove Dressings/Wound Care:: 24 hours Shower/Bathe:: 24 hours Diet:: As Tolerated DS: Diagnosis Discharge Diagnosis (1) Chronic tonsillitis: Status: Acute (2) Tonsillar calculus: Status: Acute (3) Oropharyngeal dysphagia: Status: Acute (4) Asymmetric tonsils: Status: Acute (5) Neck pain: Status: Acute
--- NOTE | 2019-07-05 08:56 | TONSIL_PTH ---
PATIENT: Elle Alvarez LOC: YOU U#:[id number] AGE/SX: 39/F ROOM: RE07/05/[address]: Simba Villa DO : 1980 BED: DIS: 07/05/2019 SPEC #: [id number] RECD: 07/05/19 12:38 STATUS: NETO REQ #: [id number] TEVIN: 07/05/19 08:[address]: Simba Villa DEPT: Surgical Specimen RECD BY: Armida Fernandez ENTERED: 07/05/19 12:40 SP TYPE: TONSIL OTHR DR: Elizabeth Hauser, PhD CORRUGATOR OPERATOR Tissues: 1 - TONSIL AGE 17 & OVER 2 - TONSIL AGE 17 & OVER Procedures: GROSS AND MICRO LEVEL 3 Comments: [id number]
[2019-07-05] MEDS: Oxymetazolone 0.05% SPRAY 15 ML BTL (09:20)
[2019-07-05] MEDS: HYDROmorphone 2 MG/ML VIAL IVP ×2 (09:24→09:41)
[2019-07-05] MEDS: Normal Saline Flush 10 ML SYR IV (09:24)
--- NOTE | 2019-07-05 10:30 | ROE_ITS ---
DATE OF SURGERY: July 05, 2019 PREOPERATIVE DIAGNOSIS: 1. Chronic tonsillitis. 2. Chronic tonsillar calculi. 3. Asymmetry to the tonsils. POSTOPERATIVE DIAGNOSIS: Same. PROCEDURE: Tonsillectomy. SURGEON: Simba Villa D.O. ANESTHESIA: General. ESTIMATED BLOOD LOSS: Scant. COMPLICATIONS: None. CONDITION: The patient tolerated the procedure well. FINDINGS: 2+ left tonsil, 1+ right tonsil. INDICATIONS FOR PROCEDURE: This is a 39-year-old female who presents with a long history of tonsilli tis and chronic tonsil calculi bilaterally with asymmetry of the tonsils. The decision was made fort h to proceed with surgery. Risks and complications were discussed in detail. Consent was placed in the Chart. PROCEDURE IN DETAIL: Patient was brought back to the operating suite in stable condition, placed sup ine on the operating table, and intubated in normal fashion. The table was rotated 90 degrees. There was no evidence of submucosal clefting or bifid uvula. The McIvor retractor was placed in the oral ca vity and suspended from the Galvan stand. The right tonsil was grasped in the superior pole and mediali zed. Pinpoint cautery was used to develop the peritonsillar fascial plane, dissection was carried out to the upper and mid portions of the tonsil with final amputation conducted with suction cautery. Th ere was no bleeding within the right tonsillar fossa. Next, the left tonsil was grasped in the superi or pole with a curved Allis forceps and medialized. Pinpoint cautery was used to develop the peritons illar fascial plane. Dissection was carried out in the plane in the superior and mid portion of the t onsils. Final amputation was conducted with suction cautery without bleeding within left fossa, Valsa lva was performed without bleeding. TMJ's were checked and were free of dislocation. Gastric contents suctioned. The patient tolerated the procedure well and went to PACU in stable condition.
== END 2019-07-05 11:30 | disposition home or self-care (01) ==
PROVIDERS: PCP Nurse Practitioner; Visit Provider Otolaryngology Otolaryngology/Facial Plastic Surgery
PROC: (CPT 42826; principal; 2019-07-05 08:15)
DX: J35.01 Chronic tonsillitis (principal); J35.8 Other chronic diseases of tonsils and adenoids; R13.12 Dysphagia, oropharyngeal phase
CPT/HCPCS: 42826; 88304; J1100; J2405; J2704

== ENCOUNTER 2019-11-28 13:10 | Emergency (ER) | payer SELFPAY ==
[2019-11-28 13:14] VITALS: BP 147/111; PULSE 79; RESP 18; TEMP 37.1; O2SAT 99
--- NOTE | 2019-11-28 13:15 | DI.RAD_ITS ---
EXAM: XR SHOULDER LT COMPLETE 2+V CLINICAL HISTORY: fall. TECHNIQUE: 2D digital imaging was performed. COMPARISON: CR XR shoulder LT complete 2+V from 01/22/2019 FINDINGS: BONES: No acute fracture is present. No bony destructive lesion is seen. JOINTS: No dislocation present. SOFT TISSUE: Normal. IMPRESSION: Unremarkable radiographs of the left shoulder. DATA REPOSITORY: RADIATION DOSE DELIVERED:
--- NOTE | 2019-11-28 13:17 | ED.GENADUL_ITS ---
Discharge Plan Disposition Patient Disposition: HOME Condition: Good Discharge Details Chief Complaint: Orthopedic Clinical Impression: Contusion of left shoulder Primary Care Provider: Elizabeth Hauser ED Provider: Hetal Echols Home Meds and New Rx's Prescriptions: New oxycodone 5 mg tablet 5 mg PO Q8H PRN (Reason: pain) Qty: 4 RF: 0 Continued pkwmdnbdrgjo-Fo-oqpd-minerals 18-0.4 mg tablet 1 tab PO DAILY RF: 0 sumatriptan succinate [Imitrex] 50 mg tablet 50 mg PO ONCE PRN (Reason: Headache) Qty: 60 RF: 0 Discharge Instructions Instructions: Shoulder Pain (ED) Additional Instructions: Encourage rest, ice, elevation. Tylenol and/or ibuprofen as needed for discomfort. You may augment this with oxycodone if this is unsuccessful in alleviating her discomfort. Please take the oxycodone only as prescribed and do not drive will take this medication. Your x-ray is reassuring today. No evidence of fracture. However, I am concerned about your rotator cuff any proper evaluation once her pain is come down will need to be performed. Please call your primary care on Friday to schedule follow-up appointment. Please use the sling to help with discomfort. However, I would like you to come out of this at least 6 times a day to perform the passive range of motion exercises as discussed. If you develop new or worsening symptoms please seek care urgently once again. Referrals: Elizabeth Hauser, PROVIDER RELATIONS COORDINATOR [Primary Care Provider] - Medical Decision Making Patient is a pleasant ambidextrous 39-year-old female presenting today with chief complaint of left shoulder pain. She reports that yesterday she broke down on side of the road with a flat tire. Was jumping on the tire teresa to try and loosen the log not when the teresa let go and she fell striking the left shoulder against the car. She denies other injury the time of the incident. Not strike her head, no LOC. Denies neck or back pain. Reports that since then she is been having severe pain in superior lateral left shoulder. Pain is nonradiating. Pain is worse with movement. She has been alternating with Tylenol and ibuprofen without relief from her discomfort. She denies any numbness or tingling. Has not noted any weakness. Has not previously injured this shoulder had any surgery to the shoulder. On exam, patient appears uncomfortable. She has notable ecchymosis and swelling to the superior lateral aspect of the shoulder. She does have swelling anteriorly, I am concerned about a potential subluxation. Axillary nerve function is intact. She is 2+ distal pulses. Joint motion of the elbow, wrist, hand. No pain in the neck. Will obtain imaging and give oxycodone to help with discomfort. FINDINGS: Bones/joints: Normal. Soft tissues: Normal. IMPRESSION: No acute findings. Discussed these findings with the patient. Encourage rest, ice, elevation. I do remain concerned for possible rotator cuff injury given the severity of discomfort, mechanism of injury and amount of swelling. However, as she is so acutely uncomfortable, I am unable to examine this thoroughly. I did discuss this shortcoming with the patient and did advise prompt follow-up. Advised follow-up with primary care in 1 week after the initial pain has begun to subside. I will provide sling to help with discomfort but did encourage passive range of motion to help prevent adhesive capsulitis. These exercises were demonstrated for the patient. Patient was will continue with Tylenol and/or ibuprofen as needed for disc. As this was initially unsuccessful, she was also given a small prescription for oxycodone to help in the acute pain period. Do n ot drive will take this medication only take as directed. She was given strict return precautions. All of her questions and concerns were addressed and she is in agreement this plan. [facility] General Mode of arrival: ambulatory . Date/Time Provider Initiated Documentation: 11/28/19 13:16 . Limitations to Documentation: no limitations . Information obtained by: patient and RN notes reviewed . History of Present Illness 39 year old F presents to the emergency department with the chief complaint of left shoulder pain after fall, described as severe, with intensity rated at 9. Quality is described as stabbing, and is localized to the left and upper extremity. Patient reports no radiation. Patient started experiencing this day(s) (1) and it has been constant. Immobilization improves symptom(s), Movement worsens symptoms . Patient notes no other symptoms.. Patient did receive the following treatments prior to arrival, NSAID and other (tylenol) Related Data Home Medications Medication Instructions Recorded Confirmed nngyywqrywbj-Sp-sjka-minerals 18 1 tab PO DAILY tab 06/04/19 11/28/19 mg-0.4 mg tablet sumatriptan succinate 50 mg tablet 50 mg PO ONCE PRN #60 tab 07/19/19 11/28/19 oxycodone 5 mg PO Q8H PRN #4 tab 11/28/19 Previous Rx's Medication Instructions Recorded sumatriptan succinate 50 mg tablet 50 mg PO ONCE PRN #60 tab 07/19/19 oxycodone 5 mg PO Q8H PRN #4 tab 11/28/19 Allergies Allergy/AdvReac Type Severity Reaction Status Date / Time aloe vera Allergy Mild Unverified 11/28/19 13:17 General Stated Complaint: Orthopedic MILADYS: 3 Review of Systems Constitutional Constitutional: Reports as per HPI, Denies chills, Denies fever(s), Denies headache(s) and Denies weakness ENT Ears, Nose, Mouth, and Throat: Denies headache(s) Cardiovascular Cardiovascular: Reports as per HPI Respiratory Respiratory: Reports as per HPI and Denies cough Musculoskeletal Musculoskeletal: Reports as per HPI and Denies tingling Integumentary/Breasts Skin/Breast: Reports as per HPI, Denies rash and Reports unusual bruising Neurologic Neurologic: Reports as per HPI, Denies headache(s), Denies tingling, Denies paresthesias and Denies weakness PFSH Surgical History Hysterectomy, Laproscopic Social History Smoking/Tobacco Use Status: Former Tobacco Use Quit Date: 05/26/09 Tobacco: How many years used: 10 Alcohol Intake: current Alcohol Intake frequency: holidays/special occasions only Alcohol type: beer Drug use: Never Substance use type: does not use Do you feel safe at home: Yes Do you feel safe in your relationship?: Yes Exam Const General: cooperative, healthy appearing, uncomfortable, no acute distress, well developed and well groomed Nutritional Appearance: well nourished and thin Orientation: alert and awake Resp Effort & Inspection: normal respiratory effort, able to speak in complete sent ences and no respiratory distress Cardio Rate: regular rate Rhythm: regular rhythm Skin General skin exam: ecchymosis (left shoulder superior lateral) Neuro General: patient alert and patient awake Cognition: normal cognition Speech: speech normal Gait: normal gait Motor: muscle tone normal throughout Sensory Exam: no sensory deficits noted Extrem Left upper extremity: normal capillary refill, shoulder/upper arm Details: tenderness Location: of the clavicle Laterality: laterally, of the A-C joint, of the proximal humerus and over the subacromial bursa, swelling Location: of the shoulder joint, axillary nerve sensory function normal and ecchymosis; ROM limited, no abrasions, no lacerations, no crepitus, no penetrating wound and no deformity, elbow/forearm Details: normal to inspection, normal ROM and distal pulses intact; no tenderness, no swelling, no ecchymosis and no deformity, wrist Details: normal to inspection, normal ROM, normal vascular exam and radial pulse present; no tenderness and no swelling and hand Details: normal to inspection, normal capillary refill, neuromotor exam normal and neurosensory exam normal; abnormal to inspection (ecchymosis, swelling to superior lateral shoulder) and ROM limited (not wanting to range left shouulder secondary to pain) Psych Appearance: grossly normal and well kempt Mental Status: mental status grossly normal Speech and Movement: speech and movement normal Course Vital Signs Vital signs: Vital Signs Temperature 37.1 C 11/28/19 13:14 Pulse 79 11/28/19 13:14 Respiratory Rate 18 11/28/19 13:14 Blood Pressure 147/111 H 11/28/19 13:14 Pulse Oximetry 99 11/28/19 13:14 Temperature 37.1 C 11/28/19 13:14 Temperature Source Temporal Artery Scan 11/28/19 13:14 Pulse 79 11/28/19 13:14 Respiratory Rate 18 11/28/19 13:14 Blood Pressure 147/111 H 11/28/19 13:14 Blood Pressure Position Sitting 11/28/19 13:14 Pulse Oximetry 99 11/28/19 13:14 Oxygen Delivery Method Room Air 11/28/19 13:14 Oxygen Flow Rate 0 11/28/19 13:14 Pain Level 10 11/28/19 13:14
[2019-11-28] MEDS: oxyCODONE 5 MG TAB PO (13:23)
--- NOTE | 2019-11-28 13:51 | DI.VRAD_ITS ---
PROCEDURE INFORMATION: Exam: XR Left Shoulder Exam date and time: 11/28/2019 1:29 PM Age: 39 years old Clinical indication: Other: Fall TECHNIQUE: Imaging protocol: XR Left shoulder. Views: 2 or more views. COMPARISON: CR XR shoulder LT complete 2+V 01/22/2019 10:22 AM FINDINGS: Bones/joints: Normal. Soft tissues: Normal. IMPRESSION: No acute findings. Dictated and Authenticated by: Jerman Sheldon MD. Ordering:AURE Fong MD
[2019-11-28 15:18] VITALS: BP 121/88; PULSE 68; RESP 18; O2SAT 100
== END 2019-11-28 15:17 | disposition home or self-care (01) ==
PROVIDERS: Emergency Provider Physician Assistant; PCP Nurse Practitioner
DX: S40.012A Contusion of left shoulder, initial encounter (principal); W01.198A Fall on same level from slipping, tripping and stumbling with subsequent striking against other object, initial encounter
CPT/HCPCS: 99283; 73030; L3650

== ENCOUNTER 2020-02-06 07:53 | Emergency (ER) | payer SELFPAY ==
[2020-02-06] VITALS (16 sets, daily range): BP systolic 120–125; BP diastolic 70–81; PULSE 68–81; RESP 1–27; TEMP 36.6; O2SAT 92–100
--- NOTE | 2020-02-06 08:00 | RT.EKG_ITS ---
APPROVED REPORT Exam: Resting ECG Patient Location: E HR:70 bpm ECG Measurements Heart Rate 70 AXIS VA 171 P 78 QRSd 68 QRS 68 QT 384 T 61 QTc 415 Conclusion EKG 8: 08 Rate 70, intervals normal, sinus rhythm, inverted T wave in V1, no significant ST elevation or depres sions, no significant Q waves. No evidence of STEMI. Unchanged from 10/22/12
--- NOTE | 2020-02-06 08:00 | DI.RAD_ITS ---
EXAM: XR PORTABLE CHEST AP CLINICAL HISTORY: cough, congestion, r/o pneumonia. TECHNIQUE: 2D digital imaging was performed. COMPARISON: CR CHEST 2 VIEWS PA,LAT from 03/21/2016 FINDINGS: LUNGS: Clear. No pleural abnormality seen. HEART: Normal. MEDIASTINUM: Normal. OTHER FINDINGS: None. IMPRESSION: No acute pulmonary findings. DATA REPOSITORY: RADIATION DOSE DELIVERED: Total DLP
--- NOTE | 2020-02-06 08:12 | ED.GENADUL_ITS ---
Discharge Plan Disposition Patient Disposition: HOME Condition: Good Discharge Details Clinical Impression: Bronchitis, Acute respiratory infection, Mild reactive airways disease Primary Care Provider: Elizabeth Hauser ED Provider: Melvin Henley Home Meds and New Rx's Prescriptions: New prednisone 50 MG tablet 50 mg PO DAILY Qty: 5 RF: 0 doxycycline hyclate 100 mg tablet 100 mg PO BID Qty: 20 RF: 0 Continued uzdrclcagzdi-Wh-tgjp-minerals 18-0.4 mg tablet 1 tab PO DAILY RF: 0 sumatriptan succinate [Imitrex] 50 mg tablet 50 mg PO ONCE PRN (Reason: Headache) Qty: 60 RF: 0 trazodone 50 mg tablet 50 mg PO QHS MDD 50mg PRN (Reason: sleep) Qty: 30 RF: 0 Discharge Instructions Instructions: Acute Bronchitis (ED), Reactive Airways Disease (ED) Additional Instructions: At this time although your x-ray has been read as negative I do feel that there is a component of notable clinical pneumonia not made evident by the x-ray imaging. In addition to this I feel you have mild reactive airway d isease/asthma that is compounding the situation. I suspect this is a bacterial infection, however we do not have your coronavirus test results. Please take the antibiotic as directed as well as a steroid. Please take the inhaler 2 puffs every 4-6 hours for the next 2 to 3 days as needed to help with your breathing. Please self quarantine at home until the coronavirus test results have returned. If you notice any worsening of your symptoms, or any new symptoms such as vomiting, diarrhea, fever, chills, shortness of breath, chest pain, numbness, weakness, or fainting , please return immediately to the emergency department for reevaluation. Please follow up with your primary care provider as soon as possible for reassessment and reevaluation. As always, it was a pleasure participating in your medical care today. Referrals: Elizabeth Hauser, HARDEEP [Primary Care Provider] - Medical Decision Making 39-year-old female with a past medical history of borderline diabetes, tobacco abuse but she quit 1 year ago no other significant medical problems who presents today for cough, with productive sputum, mild shortness of breath, intermittent chills, chest heaviness that is worse with exertion for the past 3 days. She denies any hemoptysis. She denies any other sick contacts, or any other coronavirus risk factors at this time. She has not been working as she has been laid off. 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 She does states she had childhood asthma but denies any history of current asthma. She denies history of cardiac disease or family history of cardiac disease. Patient's productive sputum is described as creamy and yellow-colored. No other complaints at this time. No other modifying factors. Denies PE risk factors such as recent long car rides, immobilization, recent surgery, prior history of DVT or PE, family history of PE or DVT, morbid obesity, exogenous estrogen and current smoking, hemoptysis, history of cancer. Physical exam demonstrates mild rhonchi, crackles in the bases small amount of wheezes. Right external ear canal demonstrates mild erythema and edema suggestive of mild otitis externa. No evidence of otitis media. The remainder of her exam is stable, vital signs stable, oxygen saturation 100%, respirations 20. Patient shows no signs of acute respiratory distress. Exam is otherwise reassuring. Signs and symptoms are concerning for bronchitis versus pneumonia. She has no coronavirus risk factors at this time in regards to exposure however there is concern with her current symptomatology albeit mild. Additionally she does extensively work with fiberglass, would not be surprised if she would continue to have a component of reactive airway disease. We will give nebulizers, check for pneumonia. Signs and symptoms are also concerning for cardiac etiology although I feel pulmonary causes more like ly. With her symptoms being present for the last 3 days no indication for serial troponins currently, will get troponin air sampling and monitoring closely and reassess. 10:22 AM X-ray results have returned, per virtual radiology no evidence of acute process. Laboratory work-up notably unremarkable, troponin EKG unremarkable, electrolytes normal, renal function stable, proBNP normal not suggestive of heart strain. Influenza test negative. COVID-19 testing still pending. Patient was given a breathing treatment and actually felt much better after this and was able to cough better and get more out productively. She remains hemodynamically stable, no signs of respiratory distress or hypoxemia whatsoever. She feels well and feels comfortable going home. At this time though with her productive sputum fever and chills subjectively, I am concerned that although the x-ray is negative she still does have clinical evidence of pneumonia not evident on chest x-ray. At this time with a negative d-dimer, unremarkable cardiac work-up in the setting of 3 days of her symptoms, and not feel that any other emergent testing is indicated currently. Will prescribe doxycycline, steroids, and albuterol with a spacer for home use of concern for component of reactive airway disease and clinical pneumoniaon exam. Discussed recommendations for self isolation until coronavirus testing has returned. I have extensively reviewed the treatment plan and discharge instructions with the patient. I have addressed all patient concerns at this time. The patient was made aware of what symptoms to monitor for that would warrant a return to the emergency department. Discussed the plan with the patient, they demonstrate verbal understanding and agreement with our assessment and plan at this time. EKG 8: 08 Rate 70, intervals normal, sinus rhythm, inverted T wave in V1, no significant ST elevation or depressions, no significant Q waves. No evidence of STEMI. Unchanged from 10/22/12. FINDINGS: Lungs: Unremarkable. No consolidation. Pleural space: Unremarkable. No pleural effusion. No pneumothorax. Heart/Mediastinum: The cardiomediastinal silhouette is fairly stable in appearance. Bones/joints: Unremarkable. IMPRESSION: No evidence for acute pulmonary disease. Thank you for allowing us to participate in the care of your patient. Dictated and Authenticated by: Bernard Bryson MD 02/06/2020 9:42 AM Eastern Time ([place] & [place]) HPI General Date/Time Provider Initiated Documentation: 02/06/20 08:08 . HPI Narrative: 39-year-old female with a past medical history of borderline diabetes, tobacco abuse but she quit 1 year ago no other significant medical problems who presents today for cough, with productive sputum, mild shortness of breath, intermittent chills, chest heaviness that is worse with exertion for the past 3 days. She denies any hemoptysis. She denies any other sick contacts, or any other coronavirus risk factors at this time. She has not been working as she has been laid off. 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 She does states she had childhood asthma but denies any history of current asthma. She denies history of cardiac disease or family history of cardiac disease. Patient's productive sputum is described as creamy and yellow-colored. No other complaints at this time. No other modifying factors. Denies PE risk factors such as recent long car rides, immobilization, recent surgery, prior history of DVT or PE, family history of PE or DVT, morbid obesity, exogenous estrogen and current smoking, hemoptysis, history of cancer. Related Data Home Medications Medication Instructions Recorded Confirmed ylzqxyxzsise-Np-rfkt-minerals 18 1 tab PO DAILY tab 06/04/19 02/06/20 mg-0.4 mg tablet sumatriptan succinate 50 mg tablet 50 mg PO ONCE PRN #60 tab 07/19/19 02/06/20 trazodone 50 mg tablet 50 mg PO QHS PRN #30 tab MDD 50mg 01/07/20 02/06/20 doxycycline hyclate 100 mg PO BID #20 tab 02/06/20 prednisone 50 mg PO DAILY #5 tab 02/06/20 Previous Rx's Medication Instructions Recorded sumatriptan succinate 50 mg tablet 50 mg PO ONCE PRN #60 tab 07/19/19 trazodone 50 mg tablet 50 mg PO QHS PRN #30 tab MDD 50mg 01/07/20 doxycycline hyclate 100 mg PO BID #20 tab 02/06/20 prednisone 50 mg PO DAILY #5 tab 02/06/20 Allergies Allergy/AdvReac Type Severity Reaction Status Date / Time aloe vera Allergy Mild Verified 02/06/20 08:11 General Stated Complaint: RespSymp MILADYS: 3 Review of Systems All systems reviewed & are unremarkable except as noted in HPI and below PFSH Surgical History Hx of tonsillectomy Hysterectomy, Laproscopic Social History Smoking/Tobacco Use Status: Former Tobacco Use Quit Date: 05/26/09 Tobacco: How many years used: 10 Alcohol Intake: current Alcohol Intake frequency: holidays/special occasions only Alcohol type: beer Drug use: Never Substance use type: does not use Do you feel safe at home: Yes Do you feel safe in your relationship?: Yes Exam Narrative Exam Narrative: 1.Const: Well-nourished, Well-developed, appearing stated age 2.Eyes: PERRL, no conjunctival injection, and symmetrical lids. 3.ENT: Atraumatic external nose and ears. Moist MM. Neck: Symmetric, trachea midline, No thyromegaly. Mild irritation in the right ear canal suggestive of otitis externa. No evidence of otitis media bilaterally 4.CVS: +S1/S2, No murmurs or gallops. Peripheral pulses 2+ and equal in all extremities. Brisk capillary refill in all extremities. 5.RESP: Unlabored respiratory effort. Mild rhonchi, minimal wheeze. Small amount of crackles in the bases. 6.GI: Soft, Nontender/Nondistended, No hepatosplenomegaly. No guarding or rebound. 7.MSK: Normocephalic/Atraumatic, Extremities w/o deformity or ttp No cyanosis or clubbing, Normal movement of all extremities. No calf tenderness. 8.Skin: Warm, Dry. No rashes or lesions. 9.Neuro: rivet bucker II-XII grossly intact. Sensation grossly intact, no focal neurologic deficits. 10.Psych: (AAO) x3. Appropriate mood and affect Course Vital Signs Vital signs: Vital Signs Pulse 73 02/06/20 08:01 Respiratory Rate 20 02/06/20 08:01 Blood Pressure 125/81 02/06/20 08:01 Pulse Oximetry 100 02/06/20 08:01 Pulse 73 02/06/20 08:01 Respiratory Rate 20 02/06/20 08:01 Blood Pressure 125/81 02/06/20 08:01 Blood Pressure Position Sitting 02/06/20 08:01 Pulse Oximetry 100 02/06/20 08:01 Oxygen Delivery Method Room Air 02/06/20 08:01 Oxygen Flow Rate 0 02/06/20 08:01 Lab/Test Results Lab/Test Results: 02/06/20 08:10 Nasopharynx Influenza Types A,B Antigen - Pending
[2020-02-06 08:32] LABS: Abs Immature Grans 0.01 10^3/uL (0.0-0.06); Absolute Basophil Count 0.02 10^3/uL (0.0-0.2); Absolute Eosinophil Count 0.03 10^3/uL (0.0-0.7); Absolute Lymphocyte Count 1.27 10^3/uL (1.2-3.4); Absolute Monocyte Count 0.32 10^3/uL (0.1-0.8); Absolute Neutrophil Count 3.21 10^3/uL (1.2-6.7); Basophils % 0.4; Eosinophils % 0.6; HCT 38.5 % (36.0-46.0); HGB 13.2 g/dL (11.2-15.7); Immature Grans % 0.2; Lymphocytes % 26.1; MCHC 34.3 % (32.0-36.0); MCV 96.3 fL (80-95); MPV 11.5 fL (8.0-11.0); Monocytes % 6.6; Neutrophils % 66.1; Nucleated RBC 0 %; Platelet Count 164 10^3/uL (130-400); RDW 12.4 % (11.7-14.6); RDW-SD 44.3 fL; WBC 4.86 10^3/uL (4.4-10.8)
[2020-02-06] MEDS: Albuterol/Ipratropium 3 ML UPD VIAL 6 ML UPD (08:39)
[2020-02-06 08:41] LABS: INR 1.1 (0.9-1.1); PTT Activated 22.2 sec (21.0-31.4); Prothrombin Time 10.6 sec (9.3-11.0)
[2020-02-06 08:55] LABS: ALT 14 U/L (14-59); AST 11 U/L (15-37); Alkaline Phosphatase 50 U/L (46-116); Anion Gap 8.2 mmol/L (3-11); BUN 9 mg/dL (7-18); Bilirubin, Total 0.5 mg/dL (0.2-1.0); CO2 27.8 mmol/L (21.0-32.0); CREATININE 1.13 mg/dL (0.55-1.02); Calcium 9.4 mg/dL (8.5-10.1); Chloride 103 mmol/L (98-107); Estimated GFR 53.33 (mL/min/1.73m2); Glucose 87 mg/dL (74-106); NT-proBNP 165 pg/mL (<300); Potassium 3.4 mmol/L (3.5-5.1); Sodium 139 mmol/L (136-145)
[2020-02-06 08:56] LABS: Troponin I < 0.05 ng/mL (<0.06)
[2020-02-06 09:25] LABS: D-Dimer 189 ng/mlFEU (<500)
[2020-02-06] MEDS: Normal Saline 500 ML IV (09:35)
--- NOTE | 2020-02-06 09:44 | DI.VRAD_ITS ---
PROCEDURE INFORMATION: Exam: XR Chest, 1 View Exam date and time: 02/06/2020 9:29 AM Age: 39 years old Clinical indication: Shortness of breath TECHNIQUE: Imaging protocol: XR of the chest Views: 1 view. COMPARISON: CR CHEST 2 VIEWS PA,LAT 03/21/2016 11:57 AM (report not provided) FINDINGS: Lungs: Unremarkable. No consolidation. Pleural space: Unremarkable. No pleural effusion. No pneumothorax. Heart/Mediastinum: The cardiomediastinal silhouette is fairly stable in appearance. Bones/joints: Unremarkable. IMPRESSION: No evidence for acute pulmonary disease. Dictated and Authenticated by: Bernard Bryson MD. Ordering:GARETH Charles MD
[2020-02-06] MEDS: Inhaler, Assist Device 1 EACH MC (10:47)
[2020-02-07 21:57] LABS: Patient Race White; SARS-CoV-2 RNA Undetected (Undetected); SARS-CoV-2 Specimen Source Nasopharynx
== END 2020-02-06 10:35 | disposition home or self-care (01) ==
PROVIDERS: Emergency Provider Student in an Organized Health Care Education/Training Program; PCP Nurse Practitioner
DX: J44.0 Chronic obstructive pulmonary disease with (acute) lower respiratory infection (principal); J20.9 Acute bronchitis, unspecified; J45.909 Unspecified asthma, uncomplicated; R07.89 Other chest pain; Z03.818 Encounter for observation for suspected exposure to other biological agents ruled out; Z87.891 Personal history of nicotine dependence
CPT/HCPCS: 36415; 80053; 87449; 93005; 94640; 96360; 99285; U0003; 71045; 83880; 84484; 85025; 85379; 85610; 85730; 93010; 99284; J7620

== ENCOUNTER 2020-03-20 10:14 | Outpatient (CLI) | payer SELFPAY ==
[2020-03-22 19:51] LABS: Patient Race White; SARS-CoV-2 RNA Undetected (Undetected); SARS-CoV-2 Specimen Source Nasal
== END 2020-03-20 10:34 ==
PROVIDERS: PCP Nurse Practitioner; Visit Provider Nurse Practitioner Family
DX: Z11.59 Encounter for screening for other viral diseases (principal)
CPT/HCPCS: U0003

== ENCOUNTER 2020-03-23 10:59 | Outpatient (CLI) | payer OTHER, SELFPAY ==
--- NOTE | 2020-03-23 14:55 | DI.RAD_ITS ---
EXAM: XR CHEST 2V PA LATERAL CLINICAL HISTORY: Congestion, severe productive cough w/RL wheezing TECHNIQUE: 2D digital imaging was performed. COMPARISON: CR,XR XR PORTABLE CHEST AP from 02/06/2020 FINDINGS: The heart is not enlarged. The lungs are clear and well expanded. No pleural effusion seen. Mediastin al contours appear intact. IMPRESSION: Normal chest. RADIATION DOSE DELIVERED: Total DLP
== END 2020-03-23 11:19 ==
PROVIDERS: PCP Nurse Practitioner; Visit Provider Nurse Practitioner Family
DX: R05 Cough (principal); R09.89 Other specified symptoms and signs involving the circulatory and respiratory systems; R06.2 Wheezing
CPT/HCPCS: 71046

== ENCOUNTER 2020-06-18 10:16 | Emergency (ER) | payer SELFPAY ==
[2020-06-18 10:20] VITALS: BP 131/79; PULSE 70; RESP 18; TEMP 36.7; O2SAT 99
--- NOTE | 2020-06-18 10:36 | ED.GENADUL_ITS ---
Discharge Plan Disposition Patient Disposition: HOME Condition: Improving Discharge Details Clinical Impression: External otitis of left ear, Acute otitis media, left Primary Care Provider: Elizabeth Hauser ED Provider: Asaf Sood Home Meds and New Rx's Prescriptions: New amoxicillin-pot clavulanate 875-125 mg tablet 1 tab PO BID 10 Days Qty: 20 RF: 0 Continued nwicayknaibh-Sv-rqrk-minerals 18-0.4 mg tablet 1 tab PO DAILY RF: 0 sumatriptan succinate [Imitrex] 50 mg tablet 50 mg PO ONCE PRN (Reason: Headache) Qty: 60 RF: 0 Discharge Instructions Additional Instructions: Please use Ciprodex otic drops left ear 4 drops 2 times a day for 1 week. Take Augmentin as prescribed. Follow-up with [facility] if not improving in 4 to 5 days time. Tylenol and/or ibuprofen as needed for pain. Small, frequent sips of fluids to maintain good hydration. May apply warm compress to left neck for comfort. Return to the ER for any acute concerns. Stand Alone Forms: Work Release Discharge Data Discharge Date/Time-TO BE ENTERED AT DEPARTURE: 06/18/20 10:59 Medical Decision Making 40-year-old female presents with left ear pain, report of discharge from the ear and left sore throat/neck pain. She is afebrile and well-appearing, tolerating liquids and solids by mouth, no drooling and no change to voice. She has evidence of a left external otitis. She also has probable otitis media and adenitis of the left submandibular region. I will place her on Augmentin as well as Ciprodex drops. She is given a single one-time dose of dexamethasone. She will follow up with [facility] if not improving in 3 to 5 days time. She is stable and appropriate for discharge home. HPI General Mode of arrival: ambulatory . Date/Time Provider Initiated Documentation: 06/18/20 10:22 . Limitations to Documentation: no limitations . Information obtained by: patient . History of Present Illness 40 year old F presents to the emergency department with the chief complaint of Left ear pain and left throat pain, described as moderate, Quality is described as dull and constant, and is localized to the head, mouth and left. Patient reports no radiation. Patient started experiencing this day(s) and it has been intermittent. No relieving factors improve symptom(s), No exacerbating factors reported . Patient notes denies cough, fever/chills, headaches, loss of appetite, nausea/vomiting and shortness of breath. Patient did receive the following treatments prior to arrival, NSAID Related Data Home Medications Medication Instructions Recorded Confirmed oavplbqutype-Su-wwxz-minerals 18 1 tab PO DAILY tab 06/04/19 06/18/20 mg-0.4 mg tablet sumatriptan succinate 50 mg tablet 50 mg PO ONCE PRN #60 tab 07/19/19 06/18/20 amoxicillin-pot clavulanate 1 tab PO BID 10 Days #20 tab 06/18/20 Previous Rx's Medication Instructions Recorded sumatriptan succinate 50 mg tablet 50 mg PO ONCE PRN #60 tab 07/19/19 amoxicillin-pot clavulanate 1 tab PO BID 10 Days #20 tab 06/18/20 Allergies Allergy/AdvReac Type Severity Reaction Status Date / Time aloe vera Allergy Mild Verified 06/18/20 10:27 General Stated Complaint: EarProblem MILADYS: 4 Review of Systems Narrative: No fever, chills. No cough or shortness of breath. No vomiting. 7 systems reviewed and otherwise negative [facility] Surgical History Hx of tonsillectomy Hysterectomy, Laproscopic Social History Smoking/Tobacco Use Status: Former Tobacco Use Quit Date: 05/26/09 Tobacco: How many years used: 10 Smoking risk assessment performed?: Yes Alcohol Intake: current Alcohol Intake frequency: holidays/special occasions only Alcohol type: beer Drug use: Never Substance use type: does not use Do you feel safe at home: Yes Do you feel safe in your relationship?: Yes Exam Narrative Exam Narrative: GEN: awake, alert, oriented 3. Pleasant, well groomed, interactive. HEAD: Normocephalic, atraumatic ENT: Mucous membranes moist, edentulous oropharynx, mild tonsillar erythema, no mass or swelling. Left tympanic membrane slightly erythematous, left external ear canal is cobblestoned and erythematous with swelling, tender to movement of the ear. Left submandibular tender lymphadenopathy EYES: PERRL, EOMI NECK: Full ROM, no NNAMDI, no menigismus CHEST/RESP: Nontender, clear to auscultation bilateral, no wheeze/rhonchi/rales CARDIOVASCULAR: RRR, no murmur, rub kecia. 2+ Rad pulse bilateral ABDOMEN: Soft, nontender, no mass. +Bowel sounds EXT: Full ROM, no edema, no rash Neuro: Grossly normal neurologic exam, conversant, interactive. Psych: Speech fluent, thoughts congruent, affect normal Course Vital Signs Vital signs: Vital Signs Temperature 36.7 C 06/18/20 10:20 Pulse 70 06/18/20 10:20 Respiratory Rate 18 06/18/20 10:20 Blood Pressure 131/79 06/18/20 10:20 Pulse Oximetry 99 06/18/20 10:20 Temperature 36.7 C 06/18/20 10:20 Temperature Source Temporal Artery Scan 06/18/20 10:20 Pulse 70 06/18/20 10:20 Respiratory Rate 18 06/18/20 10:20 Respiratory Effort Non-Labored 06/18/20 10:26 Blood Pressure 131/79 06/18/20 10:20 Blood Pressure Position Sitting 06/18/20 10:20 Pulse Oximetry 99 06/18/20 10:20 Oxygen Delivery Method Room Air 06/18/20 10:20 Oxygen Flow Rate 0 06/18/20 10:20 Pain Level 7 06/18/20 10:28
[2020-06-18] MEDS: Ciprofloxacin/Dexameth. 7.5 ML BTL AS (10:42)
[2020-06-18] MEDS: Dexamethasone 4 MG TAB 8 MG PO (10:42)
[2020-06-18] MEDS: Amox. 875/Clav. 125, 2 TABS/BTL 1 TAB PO (10:46)
== END 2020-06-18 10:59 | disposition home or self-care (01) ==
PROVIDERS: Emergency Provider Emergency Medicine; PCP Nurse Practitioner
DX: H66.92 Otitis media, unspecified, left ear (principal); H60.392 Other infective otitis externa, left ear
CPT/HCPCS: 99283; J8540

== ENCOUNTER 2020-07-03 03:28 | Outpatient (CLI) | payer SELFPAY ==
[2020-07-03 14:56] LABS: HGB 13.1 g/dL (11.2-15.7); MCHC 33.6 % (32.0-36.0); MCV 98.2 fL (80-95); Platelet Count 142 10^3/uL (130-400); RBC 3.97 10^6/uL (3.93-5.22); RDW-SD 43.8 fL; WBC 9.17 10^3/uL (4.4-10.8)
[2020-07-03 15:09] LABS: ALT 19 U/L (14-59); AST 13 U/L (15-37); Albumin 3.9 g/dL (3.4-5.0); Alkaline Phosphatase 55 U/L (46-116); Anion Gap 12.4 mmol/L (3-11); BUN 22 mg/dL (7-18); Bilirubin, Total 0.2 mg/dL (0.2-1.0); CO2 25.6 mmol/L (21.0-32.0); CREATININE 0.9 mg/dL (0.55-1.02); Calcium 9.4 mg/dL (8.5-10.1); Chloride 104 mmol/L (98-107); Glucose 115 mg/dL (74-106); Potassium 4.5 mmol/L (3.5-5.1); Sodium 142 mmol/L (136-145); TSH (W/Ref FT4) 0.49 uIU/mL (0.36-3.74); Total Protein 7.1 g/dL (6.4-8.2)
[2020-07-03 15:12] LABS: Hemoglobin A1C 5.6 % (<5.7)
== END 2020-07-03 03:29 | disposition home or self-care (01) ==
LOC: LBO 03:29 → LBN 14:37
PROVIDERS: Nurse Practitioner Family; PCP Nurse Practitioner; Visit Provider Nurse Practitioner
DX: R73.03 Prediabetes (principal); R63.4 Abnormal weight loss; H60.92 Unspecified otitis externa, left ear
CPT/HCPCS: 80053; 85027; 83036; 84443

== ENCOUNTER 2020-07-20 06:47 | Emergency (ER) | payer SELFPAY ==
--- NOTE | 2020-07-20 06:53 | ED.GENADUL_ITS ---
Discharge Plan Disposition Patient Disposition: HOME Condition: Improving Discharge Details Clinical Impression: Abdominal pain, Umbilical hernia Primary Care Provider: Elizabeth Hauser ED Provider: Gloria Mccoy Home Meds and New Rx's Prescriptions: Continued mqomfdyguoqs-Nb-dbbp-minerals 18-0.4 mg tablet 1 tab PO DAILY RF: 0 sumatriptan succinate [Imitrex] 50 mg tablet 50 mg PO ONCE PRN (Reason: Headache) Qty: 60 RF: 0 Discharge Instructions Instructions: Umbilical Hernia (ED), Abdominal Pain (ED) Additional Instructions: Alternate tylenol and motrin as needed and directed for pain. Avoid tight pants. Avoid heavy lifting more than 20 pounds. Be sure to use proper body mechanics when lifting. Call the general surgery office today to schedule a follow-up appointment for reevaluation within the next week. Return to the emergency department with any worsening or new concerning symptoms. Stand Alone Forms: Work Release Referrals: Michelle Hampton MD [ [facility] STAFF PHYSICIAN] - Discharge Data Discharge Date/Time-TO BE ENTERED AT DEPARTURE: 07/20/20 09:20 Discharge Physician: Gloria Mccoy Medical Decision Making <Shiva Spear MD - Last Filed: 07/20/20 20:10> Patient presenting with fairly localized severe pain in the umbilical area. There is some mild swelling but no erythema. She is exquisitely tender and does not tolerate any significant pressure or palpation over the umbilicus. Would presume incarcerated hernia possibly with just omentum but at this point unable to attempt any reduction. IV established. Fluids started. Fentanyl given for pain. Basic labs and CT scan of the abdomen pelvis ordered. Labs look okay. White count normal. Lactic acid less than 2. CT scan just completed. Care turned over to oncoming physician, Dr. Mccoy. Medical Records Medical records reviewed: Yes I reviewed the patient's medical records. <Gloria Mccoy DO - Last Filed: 07/24/20 14:55> 0800 --please see Dr. Spear's note for initial presentation, exam and plan. Case endorsed to follow-up on CT imaging and final disposition. 40-year-old female with a history of umbilical hernia for the past 2 months presents for burning periumbilical pain after bending over last night. Pain is improved after fentanyl. She is quite thin but has diffuse tenderness, worse in the periumbilical region. CT notes 1. Trace free pelvic fluid. 2. Moderate amount of colonic fecal material. 3. Common bile duct is dilated at 1 cm with rapid tapering in the region of the pancreatic head. The gallbladder is in situ. Further GI evaluation recommended if symptoms of biliary colic or elevated bilirubin levels are present. 4. Small fat containing umbilical hernia Liver panel and lipase added and are normal. CT reviewed with our in-house radiologist and he did not see any gallstones and there is no pancreatic duct dilatation. Presentation does not appear consistent with a gallbladder or liver source. Review of records note that patient was seen by Dr. Hampton 2 days ago for her umbilical hernia. It was thought that her pain possibly could be due to a rectus muscle strain as her umbilical hernia is quite small. Patient requested to proceed with the umbilical hernia repair which is scheduled for next month. Will call surgery for recommendations. Case discussed with Dr. George. As there is no evidence of hernia containing bowel and labs within normal limits, will plan for discharge home with follow-up with surgery in the next week. Patient advised to avoid wearing tight pants or heavy lifting. Patient feels comfortable with plan. Advised to follow up with the primary care doctor for re-evaluation. Usual and customary return precautions given prior to discharge. Medical Records Medical records reviewed: Yes I reviewed the patient's medical records. Imaging Data Radiologic Study: Radiologist's impression: CT Abdomen And Pelvis With Contrast Exam date and time: 07/20/2020 7:13 AM Age: 40 years old Clinical indication: Abdominal pain; Periumbilical; Patient HX: Acute onset of umbilical pain/swelling. Patient states that she has a hernia. TECHNIQUE: Imaging protocol: Computed tomography of the abdomen and pelvis with contrast. Radiation optimization: All CT scans at this facility use at least one of these dose optimization techniques: automated exposure control; mA and/or kV adjustment per patient size (includes targeted exams where dose is matched to clinical indication); or iterative reconstruction. Contrast material: OMNI-PAQUE 350; COMPARISON: CR RT HIP COMPLETE AP PELVIS 11/11/2016 3:22 AM FINDINGS: Liver: Normal. No mass. Gallbladder and bile ducts: Common bile duct is dilated at 1 cm with rapid tapering in the region of the pancreatic head. The gallbladder is in situ. Further GI evaluation recommended if symptoms of biliary colic or elevated bilirubin levels are present. Pancreas: Normal. No ductal dilation. Spleen: Normal. No splenomegaly. Adrenal glands: Normal. No mass. Kidneys and ureters: Simple renal cysts measure up to 3 cm on the right Stomach and bowel: A moderate amount of fecal material is present within the colon.The findings may reflect an element of underlying constipation and clinical correlation is recommended. Appendix: No evidence of appendicitis. Intraperitoneal space: Trace free fluid is present which is nonspecific but may reflect physiologic fluid or rupture of an ovarian cyst or follicle. Vasculature: Unremarkable. No abdominal aortic aneurysm. Lymph nodes: Unremarkable. No enlarged lymph nodes. Urinary bladder: Unremarkable as visualized. Reproductive: Unremarkable as visualized. Bones/joints: Unremarkable. No acute fracture. Soft tissues: Subtle small fat containing umbilical hernia noted IMPRESSION: 1. Trace free pelvic fluid. 2. Moderate amount of colonic fecal material. 3. Common bile duct is dilated at 1 cm with rapid tapering in the region of the pancreatic head. The gallbladder is in situ. Further GI evaluation recommended if symptoms of biliary colic or elevated bilirubin levels are present. 4. Small fat containing umbilical hernia Lab Data Lab results reviewed: Yes I reviewed the patient's lab results. Labs: Laboratory Tests Range/Units 07/20/20 07/20/20 07/20/20 07:05 07:05 07:05 WBC (4.4-10.8) 10^3/uL 9.78 RBC (3.93-5.22) 10^6/uL 4.13 Hgb (11.2-15.7) g/dL 13.9 Hct (36.0-46.0) % 39.7 MCV (80-95) fL 96.1 H MCH (27.0-33.0) pg 33.7 H MCHC (32.0-36.0) % 35.0 RDW (11.7-14.6) % 12.1 Plt Count (130-400) 10^3/uL 168 MPV (8.0-11.0) fL 11.5 H Immature Gran % 0.3 Neutrophils % 83.6 Lymphocytes % 11.2 Monocytes % 4.2 Eosinophils % 0.4 Basophils % 0.3 Nucleated RBC % % 0 Absolute Neutrophils (1.2-6.7) 10^3/uL 8.17 H Absolute Lymphocytes (1.2-3.4) 10^3/uL 1.10 L Absolute Monocytes (0.1-0.8) 10^3/uL 0.41 Absolute Eosinophils (0.0-0.7) 10^3/uL 0.04 Absolute Basophils (0.0-0.2) 10^3/uL 0.03 VBG Lactate (0.6-1.4) mmol/L 1.7 H Sodium (136-145) mmol/L 139 Potassium (3.5-5.1) mmol/L 3.7 Chloride (98-107) mmol/L 105 Carbon Dioxide (21.0-32.0) mmol/L 24.8 Anion Gap (3-11) mmol/L 9.2 BUN (7-18) mg/dL 14 Creatinine (0.55-1.02) mg/dL 0.8 Estimated GFR/1.73 m2 (mL/min/1.73m2) >= 60.00 Glucose (74-106) mg/dL 131 H Calcium (8.5-10.1) mg/dL 9.1 Total Bilirubin (0.2-1.0) mg/dL Conjugated Bilirubin (0.00-0.20) mg/dL AST (15-37) U/L ALT (14-59) U/L Alkaline Phosphatase (46-116) U/L Total Protein (6.4-8.2) g/dL Albumin (3.4-5.0) g/dL Lipase (73-393) U/L Range/Units 07/20/20 07/20/20 08:14 08:14 WBC (4.4-10.8) 10^3/uL RBC (3.93-5.22) 10^6/uL Hgb (11.2-15.7) g/dL Hct (36.0-46.0) % MCV (80-95) fL MCH (27.0-33.0) pg MCHC (32.0-36.0) % RDW (11.7-14.6) % Plt Count (130-400) 10^3/uL MPV (8.0-11.0) fL Immature Gran % Neutrophils % Lymphocytes % Monocytes % Eosinophils % Basophils % Nucleated RBC % % Absolute Neutrophils (1.2-6.7) 10^3/uL Absolute Lymphocytes (1.2-3.4) 10^3/uL Absolute Monocytes (0.1-0.8) 10^3/uL Absolute Eosinophils (0.0-0.7) 10^3/uL Absolute Basophils (0.0-0.2) 10^3/uL VBG Lactate (0.6-1.4) mmol/L Sodium (136-145) mmol/L Potassium (3.5-5.1) mmol/L Chloride (98-107) mmol/L Carbon Dioxide (21.0-32.0) mmol/L Anion Gap (3-11) mmol/L BUN (7-18) mg/dL Creatinine (0.55-1.02) mg/dL Estimated GFR/1.73 m2 (mL/min/1.73m2) Glucose (74-106) mg/dL Calcium (8.5-10.1) mg/dL Total Bilirubin (0.2-1.0) mg/dL 0.5 Conjugated Bilirubin (0.00-0.20) mg/dL 0.09 AST (15-37) U/L 15 ALT (14-59) U/L 19 Alkaline Phosphatase (46-116) U/L 57 Total Protein (6.4-8.2) g/dL 7.3 Albumin (3.4-5.0) g/dL 4.1 Lipase (73-393) U/L 72 HPI <Shiva Spear MD - Last Filed: 07/20/20 20:10> General Mode of arrival: ambulatory . Date/Time Provider Initiated Documentation: 07/20/20 06:52 . Limitations to Documentation: no limitations . Information obtained by: patient and RN notes reviewed . HPI Narrative: Patient presents to ED with acute onset of severe umbilical pain. Patient has a known small hernia due to be repaired by surgery a month. She has had intermittent discomfort and bulging on and off for about a month now. Last night she bent over to pick something up after getting up to go to the bathroom around 3 AM. Since that time she has had severe pain, inability to go to sleep, and no improvement despite icing it. She had nausea when the pain initially started. She has had no vomiting or diarrhea. She has no back pain. Rest of her abdomen feels fine. Related Data Home Medications Medication Instructions Recorded Confirmed ozmeixyzuhcn-Kj-rjbf-minerals 18 1 tab PO DAILY tab 06/04/19 07/20/20 mg-0.4 mg tablet sumatriptan succinate 50 mg tablet 50 mg PO ONCE PRN #60 tab 06/30/20 07/20/20 Previous Rx's Medication Instructions Recorded sumatriptan succinate 50 mg tablet 50 mg PO ONCE PRN #60 tab 06/30/20 Allergies Allergy/AdvReac Type Severity Reaction Status Date / Time aloe vera Allergy Mild Verified 07/20/20 07:00 General MILADYS: 4 Review of Systems <Shiva Spear MD - Last Filed: 07/20/20 20:10> Narrative: 03/08 Review of Systems completed and is negative except as stated above in HPI (Systems reviewed: Const, Eyes, ENT, Resp, CV, GI, , MSK, Skin, Neuro) PFSH <Shiva Spear MD - Last Filed: 07/20/20 20:10> Medical History Migraine Pre-diabetes Surgical History Hx of tonsillectomy Hysterectomy, Laproscopic Social History Smoking/Tobacco Use Status: Former Tobacco Use Quit Date: 05/26/09 Tobacco: How many years used: 10 Smoking risk assessment performed?: Yes Alcohol Intake: current Alcohol Intake frequency: holidays/special occasions only Alcohol type: beer Drug use: Never Substance use type: does not use Do you feel safe at home: Yes Do you feel safe in your relationship?: Yes Exam <Shiva Spear MD - Last Filed: 07/20/20 20:10> Narrative Exam Narrative: Const: Very thin female who appears uncomfortable. HEENT: NC/AT. Normal facial exam. Eyes: Normal conjunctiva and sclera. Neck: Supple. Trachea midline. Lungs: Normal respiratory effort. Cor: Good radial pulses. GI: Soft and ND. Exquisite tenderness in the umbilicus area. No erythema. Appears to have slight swelling in the area but patient unable to tolerate any significant pressure or palpation. The rest of her abdomen is completely benign. Neuro: A+O x 3. Normal speech, mentation, gait. Cranial nerves II - XII grossly intact. No gross motor or sensory deficit. Ext: No C/C/E. Skin: Warm and dry without rash. Sign Out <Shiva Spear MD - Last Filed: 07/20/20 20:10> Sign Out Data: Sign Out Comment: Pending scan results Last updated by Shiva Spear MD at 07/20/20 07:46
[2020-07-20 06:54] VITALS: BP 163/100; PULSE 110; RESP 16; TEMP 36.7; O2SAT 98
[2020-07-20] MEDS: Normal Saline Flush 10 ML SYR IVP (07:05)
[2020-07-20] MEDS: Lactated Ringers 1,000 ML 125 ML IV (07:15)
[2020-07-20 07:24] LABS: Abs Immature Grans 0.03 10^3/uL (0.0-0.06); Absolute Basophil Count 0.03 10^3/uL (0.0-0.2); Absolute Eosinophil Count 0.04 10^3/uL (0.0-0.7); Absolute Monocyte Count 0.41 10^3/uL (0.1-0.8); Absolute Neutrophil Count 8.17 10^3/uL (1.2-6.7); Basophils % 0.3; Eosinophils % 0.4; HCT 39.7 % (36.0-46.0); HGB 13.9 g/dL (11.2-15.7); Immature Grans % 0.3; Lactate 1.7 mmol/L (0.6-1.4); Lymphocytes % 11.2; MCH 33.7 pg (27.0-33.0); MCV 96.1 fL (80-95); MPV 11.5 fL (8.0-11.0); Monocytes % 4.2; Neutrophils % 83.6; Nucleated RBC 0 %; Platelet Count 168 10^3/uL (130-400); RBC 4.13 10^6/uL (3.93-5.22); RDW 12.1 % (11.7-14.6); RDW-SD 43.3 fL; WBC 9.78 10^3/uL (4.4-10.8)
[2020-07-20] MEDS: fentaNYL 100 MCG/2 ML VIAL 50 MCG IVP (07:26)
[2020-07-20 07:34] LABS: Anion Gap 9.2 mmol/L (3-11); BUN 14 mg/dL (7-18); CO2 24.8 mmol/L (21.0-32.0); CREATININE 0.8 mg/dL (0.55-1.02); Calcium 9.1 mg/dL (8.5-10.1); Chloride 105 mmol/L (98-107); Glucose 131 mg/dL (74-106); Potassium 3.7 mmol/L (3.5-5.1); Sodium 139 mmol/L (136-145)
--- NOTE | 2020-07-20 07:42 | DI.CT_ITS ---
EXAM: CT ABDOMEN PELVIS W CLINICAL HISTORY: acute onset of umbilical pain/swelling. TECHNIQUE: Imaging Protocol: Axial computed tomography images with coronal and sagittal reformatted images were created and reviewed CONTRAST MATERIAL: Intravenous: Omnipaque 74cc Oral: None COMPARISON: No exams were available for comparison FINDINGS: VISUALIZED LUNG BASES: No nodules nor pleural effusions evident. ABDOMEN: There is no ascites. LIVER: There are no obvious focal hepatic lesions evident . GALLBLADDER/BILIARY: No obvious gallbladder pathology. The CBD diameter to the level of the pancreat ic head is slightly prominent exhibiting 11 millimeter diameter. There is, however, no evidence of c alculus or mass at this level. No mass in the pancreatic head. PANCREAS: No evidence of pancreatic mass nor dilatation of the pancreatic duct. SPLEEN: Spleen is not enlarged. No obvious intrasplenic lesions. Splenic and portal veins are paten t. ADRENALS: There are no significant adrenal masses. KIDNEYS:There is a cyst in the lateral cortex of the right kidney which measures 3.3 by 3 cm. No oth er focal right kidney findings. A small cortical cyst in the opposite-left kidney is noted which binh sures 9 millimeters. No calculi nor hydronephrosis. No solid renal masses.. ABDOMINAL AORTA: Abdominal aorta is not enlarged. LYMPH NODES:There is no retroperitineal nor paraaortic adenopathy. ABDOMINAL WALL/GI: Small an umbilical hernia which contains fat and no bowel loops. There is no saida l obstruction however, there is subcutaneous streaking in the fat anterior to the mons pubis. The sy mphysis pubis does not exhibit signs of osteitis symphysis pubis. PELVIS: GI: The appendix is not seen as a separate structure but there are no obvious secondary signs of acut e appendicitis.No evidence of sigmoid diverticulitis. LYMPH NODES: There is no intrapelvic nor inguinal adenopathy. REPRODUCTIVE: Uterus appears to be surgically absent no abnormal adnexal masses evident. The ovaries are difficult to locate. URINARY BLADDER: No calculi nor obvious masses evident OSSEOUS: Some degenerative changes in the hips noted. No ominous osseous lesions. Sacroiliac joints appear. IMPRESSION: 1. There is mild streaking in the subcutaneous fat anterior to the symphysis pubis. No evidence of o steitis symphysis pubis. Correlation with any clinical signs of athletic pubalgia is recommended.. There is also a small umbilical anterior abdominal wall hernia which contains fat but no bowel loops. There is no bowel obstruction 2. There is a 3 centimeter benign cyst in the right kidney and there is a smaller 9-[address] in the left kidney. No solid renal masses evident. 3. CBD diameter is slightly prominent. There are no obvious calculi within the CBD nor obvious galls tones in the gallbladder lumen. There is no pancreatic head mass evident and the pancreatic duct is not dilated. Correlation with appropriate blood work recommended. 4. Uterus appears to be surgically absent RADIATION DOSE DELIVERED: 468.37mGy.cm Total DLP DATA REPOSITORY: All CT scans at this facility are submitted to the National Radiology Data Registry (NRDR) Dose Index Registry (DIR) with the [employer] ([employer]). RADIATION OPTIMIZATION: All CT scans at this facility use at least one of these dose optimization te chniques: automated exposure control; mA and/or kV adjustment per patient size (includes targeted exa ms where dose is matched to clinical indication); or iterative reconstruction.
[2020-07-20] MEDS: Normal Saline - Diluent 50 ML VIAL IV (07:52)
[2020-07-20] MEDS: Omnipaque 350 MG/ML 100 ML BTL 74 ML IJ (07:53)
--- NOTE | 2020-07-20 07:56 | DI.VRAD_ITS ---
PROCEDURE INFORMATION: Exam: CT Abdomen And Pelvis With Contrast Exam date and time: 07/20/2020 7:13 AM Age: 40 years old Clinical indication: Abdominal pain; Periumbilical; Patient HX: Acute onset of umbilical pain/swelling. Patient states that she has a hernia. TECHNIQUE: Imaging protocol: Computed tomography of the abdomen and pelvis with contrast. Radiation optimization: All CT scans at this facility use at least one of these dose optimization techniques: automated exposure control; mA and/or kV adjustment per patient size (includes targeted exams where dose is matched to clinical indication); or iterative reconstruction. Contrast material: OMNI-PAQUE 350; COMPARISON: CR RT HIP COMPLETE AP PELVIS 11/11/2016 3:22 AM FINDINGS: Liver: Normal. No mass. Gallbladder and bile ducts: Common bile duct is dilated at 1 cm with rapid tapering in the region of the pancreatic head. The gallbladder is in situ. Further GI evaluation recommended if symptoms of biliary colic or elevated bilirubin levels are present. Pancreas: Normal. No ductal dilation. Spleen: Normal. No splenomegaly. Adrenal glands: Normal. No mass. Kidneys and ureters: Simple renal cysts measure up to 3 cm on the right Stomach and bowel: A moderate amount of fecal material is present within the colon.The findings may reflect an element of underlying constipation and clinical correlation is recommended. Appendix: No evidence of appendicitis. Intraperitoneal space: Trace free fluid is present which is nonspecific but may reflect physiologic fluid or rupture of an ovarian cyst or follicle. Vasculature: Unremarkable. No abdominal aortic aneurysm. Lymph nodes: Unremarkable. No enlarged lymph nodes. Urinary bladder: Unremarkable as visualized. Reproductive: Unremarkable as visualized. Bones/joints: Unremarkable. No acute fracture. Soft tissues: Subtle small fat containing umbilical hernia noted IMPRESSION: 1. Trace free pelvic fluid. 2. Moderate amount of colonic fecal material. 3. Common bile duct is dilated at 1 cm with rapid tapering in the region of the pancreatic head. The gallbladder is in situ. Further GI evaluation recommended if symptoms of biliary colic or elevated bilirubin levels are present. 4. Small fat containing umbilical hernia Dictated and Authenticated by: Brian Carey MD. Ordering:GALE Shannon MD
[2020-07-20 08:28] LABS: Lipase 72 U/L (73-393)
[2020-07-20 08:33] LABS: ALT 19 U/L (14-59); AST 15 U/L (15-37); Albumin 4.1 g/dL (3.4-5.0); Alkaline Phosphatase 57 U/L (46-116); Bilirubin, Direct 0.09 mg/dL (0.00-0.20); Bilirubin, Total 0.5 mg/dL (0.2-1.0); Total Protein 7.3 g/dL (6.4-8.2)
[2020-07-20 08:37] VITALS: BP 112/71; PULSE 75; RESP 18; TEMP 37.1; O2SAT 100
[2020-07-20] MEDS: Ketorolac 30 MG/ML VIAL IVP (08:55)
[2020-07-20] MEDS: diazePAM 5 MG TAB PO (08:56)
[2020-07-20 09:20] VITALS: BP 120/68; PULSE 70; RESP 16; TEMP 37.1; O2SAT 99
== END 2020-07-20 09:20 | disposition home or self-care (01) ==
PROVIDERS: Emergency Medicine; Emergency Provider Physician Assistant; PCP Nurse Practitioner
DX: K42.9 Umbilical hernia without obstruction or gangrene (principal)
CPT/HCPCS: 80048; 80076; 83690; 96361; 96374; 96375; 99285; 74177; 83605; 85025; 99284; J1885; J3010; J3490

== ENCOUNTER 2020-08-11 02:59 | Outpatient (CLI) | payer MEDICAID, SELFPAY ==
[2020-08-11 10:05] LABS: Source Nasal/Nares
[2020-08-11 15:02] LABS: COVID-19 PCR Negative (Negative)
== END 2020-08-11 03:00 | disposition home or self-care (01) ==
LOC: LBO 03:01
PROVIDERS: PCP Nurse Practitioner; Visit Provider Surgery
DX: Z20.822 Contact with and (suspected) exposure to COVID-19 (principal); Z01.818 Encounter for other preprocedural examination
CPT/HCPCS: 87635

== ENCOUNTER 2020-08-16 06:16 | Day surgery (SDC) | payer MEDICAID, SELFPAY ==
--- NOTE | 2020-08-16 06:32 | ROE_ITS ---
Date of service: 08/16/20 Time of Service: 09:17 Operative Note Operative Note DATE OF PROCEDURE: 08/16/20 PRE-OP DIAGNOSIS: Umbilical hernia POST-OP DIAGNOSIS: same PROCEDURE: Primary Umbilical hernia repair SURGEON: Michelle Hampton COUNTER WEIGHER: Oliva Mejia ANESTHESIA TYPE: Local By Surgeon (0.25% Marcaine), General LMA/ETT (ASA 2/ Errol Andujar, JONNY) and Primary Nerve Block Refer to Anesthesia Record PATHOLOGY: none sent COMPLICATIONS: None Patient was transported to: PACU Patient's condition: stable Implants: None Indications: Ms Alvarez is a pleasant 40-year-old female who comes in today to discuss umbilical hernia repair. She tells me that about a month ago she noticed some pain around the umbilicus. She does some heavy lifting at work. At that particular time she was not lifting anything heavy. She tells me that it hurts when she lays down at night and rolls over to her sides. She has increased pain if she eats a big meal. She denies any changes in bowel habits, nausea or vomiting. She is otherwise a fairly healthy female. She quit smoking about 10 years ago. She only drinks alcohol on special occasions. Findings: Small 5 mm hernia defect Procedure Description: After informed consent was obtained the patient was taken to the operating room and placed in a supine position. Monitors and SCDs were applied and a timeout was done. The patient's name, date of , pro cedure type, procedure site, allergies to medications, preoperative antibiotic, and DVT prophylaxis were all reviewed. Fire risk was assessed. Next anesthesia did a bilateral rectus block under ultrasound guidance. Please see their separate dictation. Once anesthesia was done the abdomen was prepped and draped in a sterile surgical fashion. 0.25% Marcaine was injected into the dermis just under the umbilicus. An incision was made with a 15 blade under the umbilicus. Dissection was done with cautery through the subcutaneous tissues and through the umbilical stalk down to the fascia. The hernia defect was identified and measured 5 mm. The fascia was closed with a figure of eight stitch with 0 vicryl UR6. 0 Vicryl was used to secure the umbilicus down to the fascia. The dermis was re-approximated with a running 4-0 Vicryl subcuticular stitch. The skin was cleaned and dried and skin affix was applied. The patient was woken up and taken back to recovery in stable condition. There were no immediate complications. Sponge, instrument and needle counts were correct at the end of the case x2.
--- NOTE | 2020-08-16 06:35 | W.PM.DSUDISC ---
Discharge Plan Disposition Patient Disposition: HOME Condition: Good Discharge Details Reason For Visit: Umbilical hernia Attending Provider: Michelle Hampton Primary Care Provider: Elizabeth Hauser Home Meds and New Rx's Prescriptions: New acetaminophen [Tylenol] 325 mg capsule 650 mg PO Q6H PRNQty: 30 RF: 0 ibuprofen 600 mg tablet 600 mg PO Q6H PRNQty: 30 RF: 0 Continued zbuwqlvaismz-Zw-fdhn-minerals 18-0.4 mg tablet 1 tab PO DAILY RF: 0 sumatriptan succinate [Imitrex] 50 mg tablet 50 mg PO ONCE PRN (Reason: Headache) Qty: 60 RF: 0 Discharge Instructions Instructions: Umbilical Hernia Repair (DC) Additional Instructions: Activity at Home after surgery: 1. Make sure you walk outside at least 4 times per day 2. You should be able to climb a flight of stairs 3. No driving while in pain or taking pain medications 4. No strenuous activity or heavy lifting for 4 weeks (open surgery) Diet, Nutrition, & wound healin. Avoid alcohol until after you are recovered from your surgery 2. Make sure to eat plenty of lean protein (meat, fish, eggs, cottage cheese, beans) 3. Eat a variety of fruits and vegetables. Eat plenty of high fiber foods to avoid constipation. 4. Drink plenty of liquids to stay hydrated and avoid constipation Pain Medications: 1. Tylenol 650mg every 6 hours as needed and Ibuprofen 600 mg every 6 hours as needed. You may alternate between the 2 medications every 3 hours 2. If a narcotic has been prescribed take as directed only for breakthrough pain For Constipation: 1. Take Milk of Magnesia or MiraLax as needed for constipation Other: 1. You may shower daily. Do not scrub the incisions 2. Do not soak the incisions for 1 week 3. You may alternate ice and heat as needed for pain and swelling Wound Care: 1. Keep the incisions clean and dry Other Services that may have been ordered: 0 Home Health- to help with dressing changes 0 Outpatient physical therapy Please call our office if you develop: 1. Fevers >101.5 2. Nausea or Vomiting 3. Worsening pain 4. Redness and thick discharge from the wounds If after hours please call the Hospital at and ask to speak to the on-call surgeon Referrals: Michelle Hampton MD [ [facility]] - 08/29/20 9:30 am Activity:: no lifting >20 lb Diet:: As Tolerated Discharge Orders Discharge Orders: Discharge Order (Routine); Ordered 08/16/20 Ordered By: Michelle Hampton
[2020-08-16 06:45] VITALS: BP 124/92; PULSE 73; RESP 16; TEMP 36.6; O2SAT 100
[2020-08-16] MEDS: Acetaminophen 500 MG TAB 1000 MG PO (06:55)
[2020-08-16] MEDS: Celecoxib 200 MG CAP PO (06:55)
[2020-08-16] MEDS: Lactated Ringers 1,000 ML 80 ML IV (07:10)
[2020-08-16] MEDS: ceFAZolin 2 GM/50 ML BAG IVPB (08:49)
[2020-08-16] MEDS: Bupivacaine 0.25% Pres-Free 30 ML VIAL (08:58)
[2020-08-16] MEDS: Bupivacaine LIPOSOME/PF 133 MG/10 ML VIAL IJ (08:58)
[2020-08-16] MEDS: Bupivacaine 0.25% Pres-Free 10 ML VIAL (09:16)
[2020-08-16 09:30] VITALS: BP 102/81; PULSE 52; RESP 17; TEMP 36.3; O2SAT 100
[2020-08-16 09:35] VITALS: BP 126/82; PULSE 62; RESP 16; TEMP 36.3; O2SAT 100
[2020-08-16 09:40] VITALS: BP 132/89; PULSE 63; RESP 19; TEMP 36.3; O2SAT 97
[2020-08-16 09:55] VITALS: BP 147/97; PULSE 61; RESP 17; TEMP 36.1; O2SAT 100
[2020-08-16] MEDS: Ketorolac 15 MG/ML VIAL IVP (09:57)
[2020-08-16 10:50] VITALS: BP 137/94; PULSE 60; RESP 14; TEMP 36.5; O2SAT 100
== END 2020-08-16 11:15 | disposition home or self-care (01) ==
PROVIDERS: PCP Nurse Practitioner; Visit Provider Surgery
PROC: (CPT 49585; principal; 2020-08-16 07:30)
DX: K42.9 Umbilical hernia without obstruction or gangrene (principal); G89.18 Other acute postprocedural pain
CPT/HCPCS: 49585; 76942; J0690; J1885; J2001; J2250; J2405; J2704

== ENCOUNTER 2020-09-07 09:19 | Outpatient (CLI) | payer MEDICAID, SELFPAY ==
--- NOTE | 2020-09-07 09:45 | DI.CT_ITS ---
EXAM: CT ABDOMEN PELVIS W CLINICAL HISTORY: s/p umb hernia repair,?seroma,increase pain,draina. TECHNIQUE: Imaging Protocol: Axial computed tomography images with coronal and sagittal reformatted images were created and reviewed CONTRAST MATERIAL: Intravenous: Omnipaque 100cc Oral: None COMPARISON: CT CT ABDOMEN PELVIS W from 07/20/2020 FINDINGS: VISUALIZED LUNG BASES: No nodules nor pleural effusions evident. ABDOMEN: There is no ascites. LIVER: There are no focal hepatic lesions evident . GALLBLADDER/BILIARY: No obvious gallbladder pathology. CBD diameter is upper normal PANCREAS: No evidence of pancreatic mass nor dilatation of the pancreatic duct. SPLEEN: Spleen is not enlarged. No obvious intrasplenic lesions. Splenic and portal veins are paten t. ADRENALS: There are no significant adrenal masses. KIDNEYS:Solitary cyst in each kidney is again noted, unchanged in size. No renal calculi nor calf hy dronephrosis. No solid masses in the kidneys. No perinephric fluid.. ABDOMINAL AORTA: Abdominal aorta is not enlarged. LYMPH NODES:There is no retroperitineal nor paraaortic adenopathy. ABDOMINAL WALL/GI: No evidence of significant anterior abdominal wall hernia. Increased subcutaneous density at level the umbilicus is noted, more so than previous. No drainable fluid collection. No other subcutaneous findings. Previously described mild streaking in the subcutaneous fat just above the symphysis pubis is again noted, also without drainable fluid collection. PELVIS: GI: Appendix is not identified as a separate structure. No evidence of obvious appendicitis. No jerod dence of sigmoid diverticulitis. Abundant fecal material in the colon noted.No evidence of sigmoid d iverticulitis. LYMPH NODES: There is no intrapelvic nor inguinal adenopathy. REPRODUCTIVE: Uterus is again noted to be surgically absent. There are no abnormal adnexal masses no r free fluid in the pelvis. URINARY BLADDER: No calculi nor obvious masses evident OSSEOUS: No significant osseous lesions. IMPRESSION: 1. There is some increased density in the subcutaneous tissues at the level of the umbilicus more so than previous. There is no obvious drainable fluid collection at this level. Correlation with any s ymptomatology at this level is recommended. 2. The uterus again appears to be surgically absent. There are no abnormal adnexal masses. Ovaries are difficult to identify. 3. Mild streaking subcutaneous fat anterior to the symphysis pubis is again noted. Unchanged. 4. 3 cm benign cyst the right kidney again noted as is a smaller 10 millimeter cyst in the opposite-l eft kidney. There are no solid renal masses. No calculi nor hydronephrosis. RADIATION DOSE DELIVERED: 483.76mGy.cm Total DLP DATA REPOSITORY: All CT scans at this facility are submitted to the National Radiology Data Registry (NRDR) Dose Index Registry (DIR) with the [employer] (A[employer]). RADIATION OPTIMIZATION: All CT scans at this facility use at least one of these dose optimization te chniques: automated exposure control; mA and/or kV adjustment per patient size (includes targeted exa ms where dose is matched to clinical indication); or iterative reconstruction.
[2020-09-07 10:58] LABS: Abs Immature Grans 0.02 10^3/uL (0.0-0.06); HCT 39.4 % (36.0-46.0); HGB 13.3 g/dL (11.2-15.7); MCH 32.8 pg (27.0-33.0); MCHC 33.8 % (32.0-36.0); MCV 97.3 fL (80-95); MPV 11.3 fL (8.0-11.0); Nucleated RBC 0 %; Platelet Count 163 10^3/uL (130-400); RBC 4.05 10^6/uL (3.93-5.22); RDW 12.1 % (11.7-14.6); RDW-SD 43.6 fL
[2020-09-07 11:18] LABS: WBC 6.99 10^3/uL (4.4-10.8)
[2020-09-07 11:23] LABS: Absolute Lymphocyte Count 1.19 10^3/uL (1.2-3.4); Absolute Neutrophil Count 5.24 10^3/uL (1.2-6.7); Bands % 0
[2020-09-07 11:24] LABS: Absolute Eosinophil Count 0.07 10^3/uL (0.0-0.7); Absolute Monocyte Count 0.49 10^3/uL (0.1-0.8); Atypical Lymphocytes % 0; Diff Comment Manual Differential; RBC Morphology Normal
[2020-09-07] MEDS: Breeza Beverage 473 ML BTL PO ×2 (12:45→12:46)
[2020-09-07] MEDS: Omnipaque 350 MG/ML 50 ML BTL PO (12:45)
[2020-09-07] MEDS: Normal Saline - Diluent 50 ML VIAL IV (12:46)
[2020-09-07] MEDS: Normal Saline Flush 10 ML SYR IVP (12:47)
== END 2020-09-07 09:39 ==
PROVIDERS: PCP Nurse Practitioner; Visit Provider Physical Therapy Assistant
DX: R10.33 Periumbilical pain (principal); R22.2 Localized swelling, mass and lump, trunk; Z98.890 Other specified postprocedural states
CPT/HCPCS: 74177; 82565; 85025; Q9967

== ENCOUNTER 2020-09-13 19:47 | Outpatient (REF) | payer MEDICAID, SELFPAY ==
[2020-09-14 17:02] LABS: COVID-19 RT-PCR UVMMC Result Negative (Negative)
== END 2020-09-13 19:48 | disposition home or self-care (01) ==
LOC: LBN 19:47
PROVIDERS: PCP Nurse Practitioner; Visit Provider Family Medicine
DX: R19.7 Diarrhea, unspecified (principal); R50.9 Fever, unspecified; R68.83 Chills (without fever); Z20.822 Contact with and (suspected) exposure to COVID-19
CPT/HCPCS: U0003

== ENCOUNTER 2020-10-29 16:55 | Emergency (ER) | payer MEDICAID, SELFPAY ==
[2020-10-29 16:57] VITALS: BP 127/95; PULSE 77; RESP 20; TEMP 37.1; O2SAT 99
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
[2020-10-29] MEDS: Erythromycin Ophth Oint 3.5 GM TUBE OD (18:12)
== END 2020-10-29 18:12 | disposition home or self-care (01) ==
PROVIDERS: Emergency Provider Physician Assistant; PCP Nurse Practitioner
DX: S00.211A Abrasion of right eyelid and periocular area, initial encounter (principal); W20.8XXA Other cause of strike by thrown, projected or falling object, initial encounter
CPT/HCPCS: 99283

== ENCOUNTER 2021-03-16 15:26 | Outpatient (REF) | payer MEDICAID, SELFPAY ==
[2021-03-18 16:35] LABS: COVID-19 RT-PCR UVMMC Result Negative (Negative)
== END 2021-03-16 15:27 | disposition home or self-care (01) ==
LOC: LBN 15:26
PROVIDERS: PCP Nurse Practitioner; Visit Provider Family Medicine
DX: Z20.822 Contact with and (suspected) exposure to COVID-19 (principal); H92.02 Otalgia, left ear
CPT/HCPCS: U0003

== ENCOUNTER 2021-04-02 15:10 | Outpatient (REF) | payer MEDICAID, SELFPAY | END 2021-04-02 15:11 | disposition home or self-care (01) | LOC: LBN 15:10 | PROVIDERS: PCP Nurse Practitioner; Visit Provider Family Medicine | DX: H60.8X2 Other otitis externa, left ear (principal); H66.92 Otitis media, unspecified, left ear | CPT/HCPCS: 87070 ==

== ENCOUNTER 2021-08-24 15:40 | Outpatient (REF) | payer MEDICAID, SELFPAY ==
[2021-08-25 14:12] LABS: Varicella Zoster DNA Result Negative ((See Note))
== END 2021-08-24 15:41 | disposition home or self-care (01) ==
LOC: LBN 15:40
PROVIDERS: PCP Nurse Practitioner; Visit Provider Family Medicine
DX: L98.9 Disorder of the skin and subcutaneous tissue, unspecified (principal)
CPT/HCPCS: 87077; 87798; 87070; 87186; 87205

== ENCOUNTER 2022-08-04 18:47 | Emergency (ER) | payer MEDICAID, SELFPAY ==
[2022-08-04 18:51] VITALS: BP 117/79; PULSE 77; RESP 18; TEMP 36.8; O2SAT 97
--- NOTE | 2022-08-04 19:07 | W.ED.GENAD ---
Discharge Plan Disposition Patient Disposition: Home Condition: Stable Discharge Details Clinical Impression: Cellulitis, Cat scratch of multiple sites, Acute otalgia Primary Care Provider: Allen Stevens ED Provider: Armida Vázquez Home Meds and New Rx's Prescriptions: New sulfamethoxazole-trimethoprim [Bactrim DS] 800-160 mg tablet 1 tab PO BID 7 Days Qty: 14 0RF Continued sumatriptan succinate [Imitrex] 50 mg tablet 50 mg PO ONCE PRN (Reason: Headache) Qty: 60 0RF Patient Comments: out of Rx Instructions: Take 1 tablet at first onset of headache, if no relief, may repeat once in 2 hours mupirocin 2 % ointment 1 applic topical TID Qty: 22 1RF erythromycin 5 mg/gram (0.5 %) ointment 1 applic ophthalmic (eye) Q6H Qty: 3.5 0RF Rx Instructions: to affected area acetaminophen [Tylenol] 325 mg capsule 650 mg PO Q6H PRNQty: 30 0RF ibuprofen 600 mg tablet 600 mg PO Q6H PRNQty: 30 0RF Discharge Instructions Instructions: Cellulitis (ED), Cat Scratch Disease (ED) Additional Instructions: I am treating you with antibiotics old heat pulse cat scratch disease as well as cellulitis or skin infection Wound cultures pending Please follow-up with your primary care physician in 1 to 2 days for reassessment Take ibuprofen and Tylenol for pain control You may use several tablets of oxycodone which she may take as needed for pain uncontrolled with ibuprofen and Tylenol, please be aware that these are addictive and should not operate your vehicle for 8 hours after taking these medications Return earlier should you have any new or worsening complaints As you are scratched and bitten by your cat, I do recommend following your vets recommendation and quarantining the cat for 10 days, should the cat exhibit any signs or symptoms of having rabies, you must present immediately for rabies vaccine Referrals: Allen Stevens, SEAMER OPERATOR [Primary Care Provider] - Medical Decision Making 42-year-old female presents with rash and ear pain in the presence of recent cat scratch and bite Tetanus up-to-date and Is currently under quarantine on day 6. Cat has since been evaluated by marine equipment test engineer and as the cat is able to be closely monitored, no rabies vaccine or immunoglobulin indicated at this time Cannot exclude cat scratch disease will place patient on Bactrim Recheck in 48 hours recommended Patient alert, oriented, otherwise appears well Wound culture sent Return precautions reviewed and patient expressed understanding HPI General Date/Time Provider Initiated Documentation: 08/04/22 18:57. HPI Narrative: This 42-year-old female presents with ear pain, lymphadenopathy, rash to her occipital region. She states she was bitten and scratched by her cat approximately 10 days ago. She states her symptoms started approximately 4 days ago. She denies any headache, fever, or chills. She has had drainage from the rash in the back of her head per patient. Tetanus up-to-date. Cat is new to patient, she is quarantining the cat for the next 10 days and therefore has not initiated rabies treatment. Cat is not exhibiting any signs or symptoms per patient is otherwise in good health. Cat has since been examined by marine equipment test engineer per patient. Denies history of diabetes or any other medical problems. Denies any vision change. Related Data Home Medications Medication Instructions Recorded Confirmed sumatriptan succinate 50 mg tablet 50 mg PO ONCE PRN Headache #60 tabs 06/30/20 10/08/21 (Imitrex) acetaminophen 325 mg capsule 650 mg PO Q6H PRN #30 caps 08/16/20 10/08/21 (Tylenol) ibuprofen 600 mg tablet 600 mg PO Q6H PRN #30 tabs 08/16/20 10/08/21 mupirocin 2 % topical ointment 1 applic topical TID #22 grams 08/31/21 10/08/21 erythromycin 5 mg/gram (0.5 %) eye 1 applic ophthalmic (eye) Q6H #3.5 10/08/21 10/08/21 ointment grams sulfamethoxazole 800 1 tab PO BID 7 days #14 tabs 08/04/22 mg-trimethoprim 160 mg tablet (Bactrim DS) Previous Rx's Medication Instructions Recorded sumatriptan succinate 50 mg tablet 50 mg PO ONCE PRN Headache #60 tabs 06/30/20 (Imitrex) acetaminophen 325 mg capsule 650 mg PO Q6H PRN #30 caps 08/16/20 (Tylenol) ibuprofen 600 mg tablet 600 mg PO Q6H PRN #30 tabs 08/16/20 mupirocin 2 % topical ointment 1 applic topical TID #22 grams 08/31/21 erythromycin 5 mg/gram (0.5 %) eye 1 applic ophthalmic (eye) Q6H #3.5 10/08/21 ointment grams sulfamethoxazole 800 1 tab PO BID 7 days #14 tabs 08/04/22 mg-trimethoprim 160 mg tablet (Bactrim DS) Allergies Allergy/AdvReac Type Severity Reaction Status Date / Time aloe vera Allergy Mild Verified 10/08/21 14:11 General Stated Complaint: EarProblem MILADYS: 4 PFSH All Active Problems (Updated 08/04/22 @ 19:13 by ROBBI Bowers) Cellulitis (Acute) Cat scratch of multiple sites (Acute) Acute otalgia (Acute) Nicotine dependence (Acute) quit 2020 Abdominal pain (Acute) Weight loss (Acute) Medical History Migraine Pre-diabetes Surgical History History of carpal tunnel surgery of left wrist Hx of tonsillectomy Hysterectomy, Laproscopic S/P umbilical hernia repair, follow-up exam (~08/16/20) Social History Smoking/Tobacco Use Status: Former Tobacco Use Quit Date: 05/26/09 Tobacco: How many years used: 10 Smoking risk assessment performed?: Yes Alcohol Intake: current Alcohol Intake frequency: holidays/special occasions only Alcohol type: beer Drug use: Current Sobriety Substance use type: does not use Pets and animals: No Sexually active: No Special chel needs: No Do you feel safe at home: Yes Do you feel safe in your relationship?: Yes Exam HENMT Other: Approximately 3 inch circular rash noted to her occipital region, macerated, erythematous, with serosanguineous drainage, no fluctuance or crepitus, occipital lymphadenopathy, preauricular lymphadenopathy, Neck Other: No meningismus Neuro Other: Alert and oriented Course Vital Signs Vital signs: Vital Signs Temperature 36.8 C 08/04/22 18:51 Pulse 77 08/04/22 18:51 Respiratory Rate 18 08/04/22 18:51 Blood Pressure 117/79 08/04/22 18:51 Pulse Oximetry 97 08/04/22 18:51 Temperature 36.8 C 08/04/22 18:51 Temperature Source Oral 08/04/22 18:51 Pulse 77 08/04/22 18:51 Respiratory Rate 18 08/04/22 18:51 Respiratory Effort Normal 08/04/22 18:55 Blood Pressure 117/79 08/04/22 18:51 Blood Pressure Position Sitting 08/04/22 18:51 Pulse Oximetry 97 08/04/22 18:51 Oxygen Delivery Method Room Air 08/04/22 18:51 Oxygen Flow Rate 0 08/04/22 18:51 Pain Level 8 08/04/22 18:51
[2022-08-04] MEDS: Sulfameth/Trimeth DS, 2 TABS/BTL 1 TAB PO (19:27)
== END 2022-08-04 19:33 | disposition home or self-care (01) ==
PROVIDERS: Emergency Provider Physician Assistant; PCP Nurse Practitioner Family
DX: L03.811 Cellulitis of head [any part, except face] (principal); W55.03XA Scratched by cat, initial encounter; H92.01 Otalgia, right ear
CPT/HCPCS: 87077; 99283; 87070; 87186; 87205; 99284

== ENCOUNTER 2022-10-06 10:23 | Emergency (ER) | payer MEDICAID, SELFPAY ==
[2022-10-06 10:31] VITALS: BP 101/69; PULSE 66; RESP 16; TEMP 36.7; O2SAT 100
--- NOTE | 2022-10-06 11:16 | W.ED.GENAD ---
Discharge Plan Disposition Patient Disposition: Home Discharge Details Clinical Impression: Otitis externa Primary Care Provider: Allen Stevens ED Provider: Johnson Lincoln Home Meds and New Rx's Prescriptions: New Cortisporin-TC 3.3-3-10-0.5 mg/mL drops,suspension 4 drp otic (ear) QID 7 Days Qty: 10 0RF Continued sumatriptan succinate [Imitrex] 50 mg tablet 50 mg PO ONCE PRN (Reason: Headache) Qty: 60 0RF Patient Comments: out of Rx Instructions: Take 1 tablet at first onset of headache, if no relief, may repeat once in 2 hours acetaminophen [Tylenol] 325 mg capsule 650 mg PO Q6H PRNQty: 30 0RF ibuprofen 600 mg tablet 600 mg PO Q6H PRNQty: 30 0RF No Action ciprofloxacin HCl 500 mg tablet 500 mg PO BID 7 Days Qty: 14 0RF Rx Instructions: Take one tab twice a day for 7 days. Discharge Instructions Instructions: Otitis Externa (ED) Additional Instructions: Please continue to take [id number] Tylenol as needed for pain and discomfort. Monitor symptoms return immediately for any new or significant worsening of your condition otherwise follow-up with primary care provider if not improving in the next 3 to 5 days. Referrals: Allen Stevens, AMPHIBIOUS OPERATIONS OFFICER [Primary Care Provider] - 5 days (If not improving) Discharge Data Discharge Date/Time-TO BE ENTERED AT DEPARTURE: 10/06/22 11:35 Medical Decision Making Patient presenting to the emergency department for chief complaint of right ear pain. Patient states that she had some drainage noted on pillow this morning and has had muffled sounds and painful to even touching the outside of her ear. Patient denies any injury or trauma, fever chills, or other symptoms. Physical exam consistent with otitis externa, no signs of malignant otitis, mastoiditis, and no other signs of infection. Will place patient on external drops as TM appears intact and does not appear perforated. After discussion of diagnosis and plan of care patient has no further needs, questions, or concerns and states clear understanding to return to the emergency department for any worsening symptoms. This documentation was generated using [employer] dictation system, please disregard any oddities of phrase or misspellings. HPI General Mode of arrival: ambulatory. Date/Time Provider Initiated Documentation: 10/06/22 10:41. Limitations to Documentation: no limitations. Information obtained by: patient and RN notes reviewed. History of Present Illness 42 year old F presents to the emergency department with the chief complaint of Right ear pain, described as moderate and severe, Quality is described as aching and sharp, Related Data Home Medications Medication Instructions Recorded Confirmed sumatriptan succinate 50 mg tablet 50 mg PO ONCE PRN Headache #60 tabs 06/30/20 10/08/22 (Imitrex) acetaminophen 325 mg capsule 650 mg PO Q6H PRN #30 caps 08/16/20 10/08/22 (Tylenol) ibuprofen 600 mg tablet 600 mg PO Q6H PRN #30 tabs 08/16/20 10/08/22 [id number] 3.3 4 drp otic (ear) QID 7 days #10 mL 10/06/22 10/08/22 mg-3 mg-10 mg-0.5 mg/mL ear drops,susp (Cortisporin-TC) ciprofloxacin HCl 500 mg tablet 500 mg PO BID 7 days #14 tabs 10/08/22 10/08/22 Previous Rx's Medication Instructions Recorded sumatriptan succinate 50 mg tablet 50 mg PO ONCE PRN Headache #60 tabs 06/30/20 (Imitrex) acetaminophen 325 mg capsule 650 mg PO Q6H PRN #30 caps 08/16/20 (Tylenol) ibuprofen 600 mg tablet 600 mg PO Q6H PRN #30 tabs 08/16/20 [id number]-[id number]-OM-thonzonm 3.3 4 drp otic (ear) QID 7 days #10 mL 10/06/22 mg-3 mg-10 mg-0.5 mg/mL ear drops,susp (Cortisporin-TC) ciprofloxacin HCl 500 mg tablet 500 mg PO BID 7 days #14 tabs 10/08/22 Allergies Allergy/AdvReac Type Severity Reaction Status Date / Time sulfamethoxazole Allergy Intermediate Itching Verified 10/08/22 14:07 [From Bactrim] trimethoprim [From Bactrim] Allergy Intermediate Itching Verified 10/08/22 14:07 aloe vera Allergy Mild Verified 10/08/22 14:07 General Stated Complaint: EarProblem MILADYS: 5 Review of Systems Constitutional Constitutional: Denies chills, Denies fever(s) and Denies headache(s) Eyes Eyes: Reports system reviewed and no additional complaints, except as documented ENT Ears, Nose, Mouth, and Throat: Reports as per HPI, Denies dizziness, Reports ear discharge, Reports otalgia, Denies headache(s), Denies nasal congestion, Denies sore throat and Denies throat swelling Respiratory Respiratory: Denies cough Neurologic Neurologic: Denies dizziness and Denies headache(s) Allergic/Immunologic Allergic/Immunologic: Denies throat swelling PFSH All Active Problems Otitis externa (Acute) Vulvar lesion (Acute) Weight loss (Acute) Abdominal pain (Acute) Nicotine dependence (Acute) quit 2020 Medication reaction (Acute) Medical History Cat bite Migraine Pre-diabetes Surgical History History of carpal tunnel surgery of left wrist Hx of tonsillectomy Hysterectomy, Laproscopic S/P umbilical hernia repair, follow-up exam (~08/16/20) Social History Smoking/Tobacco Use Status: Former Tobacco Use Quit Date: 05/26/09 Tobacco: How many years used: 10 Smoking risk assessment performed?: Yes Alcohol Intake: current Alcohol Intake frequency: holidays/special occasions only Alcohol type: beer Drug use: Current Sobriety Substance use type: does not use Pets and animals: No Sexually active: No Special chel needs: No Do you feel safe at home: Yes Do you feel safe in your relationship?: Yes History History 2 Para 2 Hx # Term Pregnancies Multiple births Hx # Pregnancies Ectopic pregnancies AB induced Hx Number of Living Children AB spontaneous Past Pregnancies Del. Date GA/Weeks # Preg Succ Route Wgt Sex Labor Lgth Anesthesia Location Prov Complic 08/25/99 40 vaginal 3628.739 g Female [facility] 09/23/00 Yes vaginal 1502.525 g Male [facility] Delivery Date: 09/23/00 Last Updated by: Michelle Fagan Breech premature, baby to [facility]. Exam Const General: cooperative, no acute distress and not ill appearing Orientation: alert, awake and oriented x3 HENMT Ears: external ears normal, TM normal on the left, mastoids normal, EAC abnormal erythema on the right and EAC tenderness on the right, external ear abnormal auricular tenderness on the right and pain with movement of external ear on the right, no periauricular adenopathy and TM abnormal erythematous on the right Mouth: moist mucous membranes Resp Effort & Inspection: normal respiratory effort, able to speak in complete sentences and no respiratory distress Skin General skin exam: no rashes or lesions noted Neuro General: patient alert, patient awake, patient oriented x3, moves all extremities and no focal motor deficits Sensory Exam: no sensory deficits noted Course Vital Signs Vital signs: Vital Signs Temperature 36.7 C 10/06/22 10:31 Pulse 66 10/06/22 10:31 Respiratory Rate 16 10/06/22 10:31 Blood Pressure 101/69 10/06/22 10:31 Pulse Oximetry 100 10/06/22 10:31 Temperature 36.7 C 10/06/22 10:31 Temperature Source Skin 10/06/22 10:31 Pulse 66 10/06/22 10:31 Respiratory Rate 16 10/06/22 10:31 Respiratory Effort Normal 10/06/22 10:37 Blood Pressure 101/69 10/06/22 10:31 Blood Pressure Position Sitting 10/06/22 10:31 Pulse Oximetry 100 10/06/22 10:31 Oxygen Delivery Method Room Air 10/06/22 10:31 Oxygen Flow Rate 0 10/06/22 10:31 Pain Level 8 10/06/22 10:38 Comment has taken tylenol and ibuprofen 10/06/22 10:31
[2022-10-06] MEDS: Ibuprofen 600 MG TAB PO (11:26)
== END 2022-10-06 11:35 | disposition home or self-care (01) ==
PROVIDERS: Emergency Provider Nurse Practitioner Family; PCP Nurse Practitioner Family
DX: H60.91 Unspecified otitis externa, right ear (principal)
CPT/HCPCS: 99283; 99284

== ENCOUNTER 2022-10-08 20:47 | Outpatient (REF) | payer MEDICAID, SELFPAY | END 2022-10-08 20:48 | disposition home or self-care (01) | LOC: LBN 20:47 | PROVIDERS: PCP Nurse Practitioner Family; Visit Provider Nurse Practitioner Family | DX: R23.8 Other skin changes; S00.4 Superficial injury of ear; W55.01XD Bitten by cat, subsequent encounter | CPT/HCPCS: 87077; 87070; 87186; 87205 ==

== ENCOUNTER 2022-10-30 04:20 | Outpatient (CLI) | payer MEDICAID, SELFPAY ==
[2022-11-02 00:33] LABS: Bartonella Henselae IgG <1:128 titer (<1:128); Bartonella Henselae IgM <1:20 titer (<1:20); Bartonella Quintana IgG <1:128 titer (<1:128); Bartonella Quintana IgM <1:20 titer (<1:20)
== END 2022-10-30 04:21 | disposition home or self-care (01) ==
LOC: LBO 04:20
PROVIDERS: PCP Nurse Practitioner Family; Visit Provider Nurse Practitioner Family
DX: L98.8 Other specified disorders of the skin and subcutaneous tissue; W55.01XD Bitten by cat, subsequent encounter; W55.03XD Scratched by cat, subsequent encounter; L30.8 Other specified dermatitis
CPT/HCPCS: 36415; 86611

== ENCOUNTER 2023-01-28 14:12 | Outpatient (REF) | payer MEDICAID, SELFPAY ==
--- NOTE | 2023-01-28 13:40 | SKI_PTH ---
PATIENT: Elle Alvarez LOC: [facility] U#:[id number] AGE/SX: 42/F ROOM: RE01/28/[address]: Carol Griffin NP : 1980 BED: DIS: 01/28/2023 SPEC #: [id number] RECD: 01/29/23 12:58 STATUS: NETO REGaetano #: [id number] TEVIN: 01/28/23 13:[address]: Carol Griffin DEPT: Surgical Specimen RECD BY: Armida Fernandez ENTERED: 01/29/23 12:59 SP TYPE: ELISHA SANCHEZ DR: Allen Diego, ANTONIO Tissues: 1 - SKIN BIOPSY(SHAVE/PUNCH) Procedures: SKIN LEVEL 4 SPECIAL STAIN 1 Comments: [id number]
== END 2023-01-28 14:13 | disposition home or self-care (01) ==
LOC: LBN 14:12
PROVIDERS: PCP Nurse Practitioner Family; Visit Provider Nurse Practitioner Family
DX: L28.0 Lichen simplex chronicus (principal)
CPT/HCPCS: 87077; 87070; 87186; 87205; 88305; 88312

== ENCOUNTER → 2023-04-16 02:41 | Outpatient (CLI) | payer MEDICAID, SELFPAY ==
--- NOTE | 2023-04-16 07:30 | DI.RAD_ITS ---
Exam(s) XR HIP RT COMPLETE AP PELVIS XR FEMUR RT EXAM: XR FEMUR RT CLINICAL HISTORY: right hip,femur pain,h/o fall,m25.559,[id number]. TECHNIQUE: 2D digital imaging was performed. AP and lateral views the femur. AP and frog-leg later al view of the pelvis and right hip.. COMPARISON: CR XR HIP RT COMPLETE AP PELVIS from 04/16/2023 FINDINGS: BONES: No acute fracture is present. No bony destructive lesion is seen. Degenerative cyst is seen i n the femoral neck regions bilaterally. Enthesophyte at upper pole of the patella. JOINTS: Hip joint spaces are maintained. There is prominent bilateral acetabular spurring, greater s uperiorly. There is spurring at the femoral heads bilaterally. The SI joints and pubic symphysis ar e unremarkable. SOFT TISSUE: Normal. IMPRESSION: No acute abnormality. Degenerative changes of the hips. DATA REPOSITORY: RADIATION DOSE DELIVERED:
== END ==
PROVIDERS: PCP Nurse Practitioner Family; Visit Provider Physician Assistant
DX: M79.604 Pain in right leg; M25.552 Pain in left hip; M25.551 Pain in right hip
CPT/HCPCS: 73552; 73502

== ENCOUNTER → 2023-04-18 07:49 | Outpatient (CLI) | payer MEDICAID, SELFPAY ==
--- NOTE | 2023-04-18 07:30 | DI.US_ITS ---
Exam(s) US LOWER EXTREMITY VENOUS RT EXAM: US LOWER EXTREMITY VENOUS RT CLINICAL HISTORY: right leg swelling, pain, M79.604 TECHNIQUE: Right lower extremity venous ultrasound performed using grayscale, color-flow, and spectr al Doppler analysis. COMPARISON: No exams were available for comparison FINDINGS: The right common femoral, femoral and popliteal veins demonstrate normal compressibility, augmentatio n, and color Doppler. The posterior tibial and peroneal veins are patent. The saphenofemoral junctio n is unremarkable. There is no evidence of a Martin cyst. The soft tissues are unremarkable. IMPRESSION: No evidence of a right lower extremity DVT. DATA REPOSITORY:
== END ==
PROVIDERS: PCP Nurse Practitioner Family; Visit Provider Physician Assistant
DX: M79.604 Pain in right leg (principal)
CPT/HCPCS: 93971

== ENCOUNTER → 2023-04-22 02:45 | Outpatient (CLI) | payer MEDICAID, SELFPAY ==
--- NOTE | 2023-04-22 10:51 | DI.RAD_ITS ---
Exam(s) XR LUMBAR SPINE COMPLETE EXAM: XR LUMBAR SPINE COMPLETE CLINICAL HISTORY: continued pain after fall, m54.50. TECHNIQUE: 2D digital imaging was performed. COMPARISON: No exams were available for comparison FINDINGS: Five views. No evidence fracture, listhesis, nor pars defects. There is no disc space narrowing. Mild anterior osseous lipping at L2-3 may indicate degenerative disc disease at this level despite preserved disc h eight. Facet joints appear unremarkable the exception of some degenerative change at L5-S1 facet joints.. T here is no scoliosis. No osseous lesions. IMPRESSION: Mild findings as above. DATA REPOSITORY: RADIATION DOSE DELIVERED:
--- NOTE | 2023-04-22 10:54 | DI.RAD_ITS ---
Exam(s) XR HIP RT COMPLETE AP PELVIS EXAM: XR HIP RT COMPLETE AP PELVIS CLINICAL HISTORY: continued rt hip pain after fall,m25.551. TECHNIQUE: 2D digital imaging was performed. COMPARISON: CR XR HIP RT COMPLETE AP PELVIS from 04/16/2023 FINDINGS: Two views. No evidence of pelvic nor hip fracture. SI joints unremarkable. Although there is no hip joint space narrowing, there are osteophytes evident at the level the right femoral head-neck junction. There is also a benign-appearing 1.5 x 0.9 cm subcortical cyst in the ri ght hip at the junction of the femoral head and neck. This is probably a benign synovial pit, and in deed a similar but smaller finding is seen in the opposite-left hip. IMPRESSION: Hip joint degenerative changes, more so on the right. Benign-appearing synovial pits in both femoral necks. DATA REPOSITORY: RADIATION DOSE DELIVERED:
== END ==
PROVIDERS: PCP Nurse Practitioner Family; Visit Provider Nurse Practitioner Family
DX: M25.552 Pain in left hip (principal); M54.50 Low back pain, unspecified; M25.551 Pain in right hip
CPT/HCPCS: 72110; 73502

== ENCOUNTER 2023-08-21 16:56 | Emergency (ER) | payer MEDICAID, SELFPAY ==
[2023-08-21 16:58] VITALS: BP 131/90; PULSE 101; RESP 14; TEMP 36.7; O2SAT 100
--- NOTE | 2023-08-21 17:19 | W.ED.GENAD ---
Discharge Plan Disposition Patient Disposition: Home Condition: Stable Discharge Details Clinical Impression: Cellulitis of left hand Primary Care Provider: Allen Stevens ED Provider: Bernard Gimenez Home Meds and New Rx's Prescriptions: Continued mupirocin 2 % ointment 1 applic topical BID Qty: 50 0RF Rx Instructions: apply small amount to affected areas twice a day No Action sumatriptan succinate [Imitrex] 50 mg tablet 50 mg PO ONCE PRN (Reason: Headache) Qty: 60 0RF Patient Comments: out of Rx Instructions: Take 1 tablet at first onset of headache, if no relief, may repeat once in 2 hours Discharge Instructions Additional Instructions: Take the antibiotic as prescribed, he can also ice the area and keep it elevated. With your primary care provider within 1 week if it is not improving You feel more ill, have severe worsening pain, or fevers return to the emergency department. HPI General Mode of arrival: ambulatory. Date/Time Provider Initiated Documentation: 08/21/23 17:05. Limitations to Documentation: no limitations. Information obtained by: patient. History of Present Illness 43 year old F presents to the emergency department with the chief complaint of Left hand redness, described as mild, Quality is described as aching, Patient started experiencing this hour(s) (2) and it has been constant. No relieving factors improve symptom(s), No exacerbating factors reported . Patient notes no other symptoms.. Patient did receive the following treatments prior to arrival, none Related Data Home Medications Medication Instructions Recorded Confirmed mupirocin 2 % topical ointment 1 applic topical BID #50 grams 07/04/23 08/21/23 sumatriptan succinate 50 mg tablet 50 mg PO ONCE PRN Headache #60 tabs 07/10/23 08/21/23 (Imitrex) Previous Rx's Medication Instructions Recorded mupirocin 2 % topical ointment 1 applic topical BID #50 grams 07/04/23 sumatriptan succinate 50 mg tablet 50 mg PO ONCE PRN Headache #60 tabs 07/10/23 (Imitrex) Allergies Allergy/AdvReac Type Severity Reaction Status Date / Time sulfamethoxazole Allergy Intermediate Itching Verified 08/21/23 17:02 [From Bactrim] trimethoprim [From Bactrim] Allergy Intermediate Itching Verified 08/21/23 17:02 aloe vera Allergy Mild Itching Verified 08/21/23 17:02 General Stated Complaint: AnimalBite MILADYS: 3 Review of Systems All systems reviewed & are unremarkable except as noted in HPI and below Constitutional Constitutional: Denies chills, Denies fever(s) and Denies weakness Cardiovascular Cardiovascular: Denies chest pain and Denies dyspnea Respiratory Respiratory: Denies cough and Denies dyspnea Gastrointestinal Gastrointestinal: Denies abdominal pain, Denies nausea and Denies vomiting Musculoskeletal Musculoskeletal: Denies joint swelling Neurologic Neurologic: Denies weakness Exam Const General: no acute distress Orientation: alert HENMT Head: normal to inspection Ears: external ears normal General nose exam: external nose normal Mouth: moist mucous membranes Resp Effort & Inspection: normal respiratory effort and able to speak in complete sentences Cardio Rate: regular rate Skin General skin exam: erythema Neuro General: patient alert and patient oriented x3 Extrem General: full ROM and capillary refill normal Psych Mental Status: mental status grossly normal Course Vital Signs Vital signs: Vital Signs Temperature 36.7 C 08/21/23 16:58 Pulse 101 H 08/21/23 16:58 Respiratory Rate 14 08/21/23 16:58 Blood Pressure 131/90 08/21/23 16:58 Pulse Oximetry 100 08/21/23 16:58 Temperature 36.7 C 08/21/23 16:58 Temperature Source Oral 08/21/23 16:58 Pulse 101 H 08/21/23 16:58 Respiratory Rate 14 08/21/23 16:58 Respiratory Effort Normal 08/21/23 17:03 Blood Pressure 131/90 08/21/23 16:58 Blood Pressure Position Sitting 08/21/23 16:58 Pulse Oximetry 100 08/21/23 16:58 Oxygen Delivery Method Room Air 08/21/23 16:58 Oxygen Flow Rate 0 08/21/23 16:58 Pain Level 8 08/21/23 16:58 Medical Decision Making 43-year-old female comes in stating that she was bit by a spider about 2 hours ago, she says that about 6 biters and is unsure what kind they were. She has not had any fevers, has mild discomfort where she was bit. She has what appears to be a small bite max on the posterior left hand just proximal to the base of the thumb. She has 4 mm of surrounding erythema, no fluctuance, no crepitus. She is to fully move her thumb and all of her fingers. Suspect cellulitis from a spider bite, will start on Augmentin, do not feel labs or imaging indicated given the likelihood of etiology such as sepsis or appetizing fasciitis. She will follow-up with her primary care provider and return precautions given Differential Diagnosis Differential Diagnosis: Cellulitis, spider envenomation Quality:SDOH Health Related Social Needs: No Data to Display PFSH All Active Problems (Updated 08/21/23 @ 17:24 by Bernard Gimenez MD) Cellulitis of left hand (Acute) Periorbital cellulitis of left eye (Acute) Right hip pain (Acute) Pruriginous atopic dermatitis in adult (Acute) Lower back pain (Acute) Left hip pain (Acute) Weight loss (Acute) Abdominal pain (Acute) Nicotine dependence (Acute) quit 2020 Medication reaction (Acute) Vulvar lesion (Acute) Cat scratch (Acute) Medical History Neurodermatitis Cat bite Pre-diabetes Migraine Surgical History S/P umbilical hernia repair, follow-up exam (~08/16/20) History of carpal tunnel surgery of left wrist Hx of tonsillectomy Hysterectomy, Laproscopic Social History Smoking/Tobacco Use Status: Former Tobacco Use Quit Date: 05/26/09 Tobacco: How many years used: 10 Smoking risk assessment performed?: Yes Alcohol Intake: current Alcohol Intake frequency: holidays/special occasions only Alcohol type: beer Drug use: Current Sobriety Substance use type: does not use Pets and animals: No Sexually active: No Special chel needs: No Do you feel safe at home: Yes Do you feel safe in your relationship?: Yes History History 2 Para 2 Hx # Term Pregnancies Multiple births Hx # Pregnancies Ectopic pregnancies AB induced Hx Number of Living Children AB spontaneous Past Pregnancies Del. Date GA/Weeks # Preg Succ Route Wgt Sex Labor Lgth Anesthesia Location [facility] 08/25/99 40 vaginal 3628.739 g Female [facility] 09/23/00 Yes vaginal 1502.525 g Male [facility] Delivery Date: 09/23/00 Last Updated by: Michelle Hixson Breech premature, baby to [facility].
== END 2023-08-21 17:32 | disposition home or self-care (01) ==
PROVIDERS: Emergency Provider Emergency Medicine; PCP Nurse Practitioner Family
DX: S60.562A Insect bite (nonvenomous) of left hand, initial encounter (principal); L03.114 Cellulitis of left upper limb; W57.XXXA Bitten or stung by nonvenomous insect and other nonvenomous arthropods, initial encounter
CPT/HCPCS: 99283

== ENCOUNTER 2024-02-06 13:28 | Outpatient (CLI) | payer MEDICAID, SELFPAY ==
--- NOTE | 2024-02-06 13:30 | RT.EKG_ITS ---
APPROVED REPORT Exam: Resting ECG Reason for Exam: HIGH RISK MEDICATION USE Patient Location: O HR:81 bpm ECG Measurements Heart Rate 81 AXIS MD 156 P 85 QRSd 72 QRS 78 QT 407 T 45 QTc 473 Conclusion Sinus rhythm...normal P axis, V-rate 50- 99
== END 2024-02-06 13:29 | disposition home or self-care (01) ==
PROVIDERS: PCP Nurse Practitioner Family; Visit Provider Family Medicine
DX: Z79.899 Other long term (current) drug therapy (principal)
CPT/HCPCS: 93005; 93010

== ENCOUNTER 2024-03-01 16:58 | Emergency (ER) | payer MEDICAID, SELFPAY ==
[2024-03-01 17:00] VITALS: BP 133/99; PULSE 98; RESP 16; TEMP 36.4; O2SAT 96
[2024-03-01] MEDS: Fluorescein STRIPS 100/BOX 1 MG OP (17:16)
[2024-03-01] MEDS: Tetracaine 0.5% 4 ML BTL (17:19)
[2024-03-01] MEDS: Erythromycin Ophth Oint 3.5 GM TUBE OS (17:29)
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
== END 2024-03-01 17:35 | disposition home or self-care (01) ==
LOC: ER 17:46
PROVIDERS: Emergency Provider Emergency Medicine; PCP Nurse Practitioner Family
DX: H57.11 Ocular pain, right eye (principal); S00.211A Abrasion of right eyelid and periocular area, initial encounter; Z87.891 Personal history of nicotine dependence; X58.XXXA Exposure to other specified factors, initial encounter
CPT/HCPCS: 99283

== ENCOUNTER 2024-03-02 20:41 | Outpatient (REF) | payer MEDICAID, SELFPAY | END 2024-03-02 20:42 | disposition home or self-care (01) | LOC: LBN 20:41 | PROVIDERS: PCP Nurse Practitioner Family; Visit Provider Nurse Practitioner Family | DX: T14.8XXA Other injury of unspecified body region, initial encounter (principal); H57.11 Ocular pain, right eye; B95.62 Methicillin resistant Staphylococcus aureus infection as the cause of diseases classified elsewhere | CPT/HCPCS: 87077; 87070; 87186; 87205 ==

== ENCOUNTER 2024-03-28 11:25 | Emergency (ER) | payer MEDICAID, SELFPAY ==
[2024-03-28 11:30] VITALS: BP 131/83; PULSE 76; RESP 19; TEMP 36.9; O2SAT 100
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
[2024-03-28] MEDS: Erythromycin Ophth Oint 3.5 GM TUBE (12:16)
[2024-03-28] MEDS: Tetracaine 0.5% 4 ML BTL OP (12:18)
[2024-03-28] MEDS: Fluorescein STRIPS 100/BOX 1 MG OP (12:18)
== END 2024-03-28 12:11 | disposition home or self-care (01) ==
PROVIDERS: Emergency Provider Emergency Medicine; PCP Nurse Practitioner Family
DX: H01.002 Unspecified blepharitis right lower eyelid (principal)
CPT/HCPCS: 99283; 99284

== ENCOUNTER 2024-05-18 13:38 | Outpatient (CLI) | payer MEDICAID, SELFPAY ==
--- NOTE | 2024-05-18 10:24 | DI.RAD_ITS ---
Exam(s) XR SACRUM COCCYX XR LUMBAR SPINE COMPLETE EXAM: XR LUMBAR SPINE COMPLETE CLINICAL HISTORY: M54.50 Low back pain evaluate pathology. TECHNIQUE: 2D digital imaging was performed. Five views. COMPARISON: CR XR LUMBAR SPINE COMPLETE from 04/22/2023 CR XR SACRUM COCCYX from 05/18/2024 FINDINGS: The sacrum and coccyx are somewhat obscured by overlying bowel gas and stool. BONES: No fracture or destructive lesion. Vertebral body heights are maintained. No facet hypertro phy identified . DISKS: Intervertebral disc spaces are maintained. ALIGNMENT: Lumbar spinal alignment is within normal limits. SOFT TISSUE: Normal. IMPRESSION: Unremarkable radiographs of the lumbar and sacral spine. DATA REPOSITORY: RADIATION DOSE DELIVERED:
--- NOTE | 2024-05-18 10:25 | DI.RAD_ITS ---
Exam(s) XR THORACIC SPINE COMPLETE EXAM: XR THORACIC SPINE COMPLETE CLINICAL HISTORY: M54.6 Pain in thoracic spine, evaluate pathology. TECHNIQUE: 2D digital imaging was performed. Three views. COMPARISON: CR CHEST 2 VIEWS PA,LAT from 10/22/2012 CR CHEST 2 VIEWS PA,LAT from 03/21/[address] NECK W from 06/21/2019 CR,XR XR PORTABLE CHEST AP from 02/06/2020 CR XR CHEST 2V PA LATERAL from 03/23/2020 FINDINGS: Lateral view is limited by rotation. BONES: Mild compression fractures of T4 and T5 appear unchanged from 2016. There is no new fracture or destructive lesion. The vertebral bodies and posterior elements are unremarkable. ALIGNMENT: Within normal limits. DISKS: Interverebral disc spaces are maintained. SOFT TISSUE: Visualized lungs are clear. IMPRESSION: Stable mild compression fractures of T4 and T5. DATA REPOSITORY: RADIATION DOSE DELIVERED:
== END 2024-05-18 13:58 ==
LOC: DI 13:40
PROVIDERS: PCP Nurse Practitioner Family; Visit Provider Nurse Practitioner Family
DX: M53.3 Sacrococcygeal disorders, not elsewhere classified (principal)
CPT/HCPCS: 72072; 72110; 72220

== ENCOUNTER 2024-09-21 09:21 | Outpatient (CLI) | payer MEDICAID, SELFPAY ==
--- NOTE | 2024-09-21 09:15 | RT.EKG_ITS ---
APPROVED REPORT Exam: Resting ECG Reason for Exam: HIGH RISK MEDICATION USE Patient Location: O HR:77 bpm ECG Measurements Heart Rate 77 AXIS WV 159 P 84 QRSd 75 QRS 77 QT 424 T 64 QTc 480 Conclusion Sinus rhythm...normal P axis, V-rate 50- 99 Right atrial enlargement...P>0.25mV 2 lds or<-0.24mV aVR/aVL Otherwise normal ECG
== END 2024-09-21 09:22 | disposition home or self-care (01) ==
PROVIDERS: PCP Nurse Practitioner Family; Visit Provider Family Medicine
DX: Z79.899 Other long term (current) drug therapy (principal); I51.7 Cardiomegaly
CPT/HCPCS: 93005; 93010

== ENCOUNTER 2025-03-16 13:34 | Outpatient (REF) | payer MEDICAID, SELFPAY | END 2025-03-16 13:35 | disposition home or self-care (01) | LOC: NCHCN 13:34 | PROVIDERS: PCP Nurse Practitioner Family; Visit Provider Physician Assistant | DX: L98.9 Disorder of the skin and subcutaneous tissue, unspecified (principal); L02.91 Cutaneous abscess, unspecified | CPT/HCPCS: 87077; 87070; 87186; 87205 ==